=== PATIENT | female | born 1955 | race Caucasian/White ===

== ENCOUNTER 2017-02-03 19:01 | Inpatient (IN) | payer OTHER ==
[~2017-02-03] VITALS: Ht 179.1 cm; Wt 129.6 kg
[~2017-02-03 19:01] MED LIST: LISI20TA PO; NAPR220C11 PO; PROZAC20 M1 PO
[2017-02-03 19:14] VITALS: BP 157/99; PULSE 92; RESP 22; O2SAT 96
--- NOTE | 2017-02-03 19:30 | ED.REPORT ---
HPI-Hip/Pelvis Prob/Inj Date of Service Feb 03, 2017 ED Provider: Dmeetrio Trent MD Nursing Notes Stated Complaint: GROUND LEVEL FALL Chief Complaint: Extremity Trauma Allergies: Coded Allergies: erythromycin base (Verified Allergy, Severe, hives, 02/03/17) Scheduled Fluoxetine (Fluoxetine) 20 Mg Capsule 20 MG PO QAM Gluc/Jadiel-MSM#2/C/D3/Moe/Born (Tliybmwdod-Ypmormaikvf-CVD Tab) 1 Each Tablet 1 EACH PO QAM Lisinopril (Lisinopril) 20 Mg Tablet 40 MG PO QAM Scheduled PRN Naproxen Sodium (Naproxen Sodium) 220 Mg Capsule 220 MG PO BIDWM PRN PRN For Pain Physical Exam Initial Vital Signs Vital Signs (First) Date Time Temp Pulse Resp B/P Pulse Ox O2 Delivery O2 Flow Rate FiO2 02/03/17 19:14 36.8 92 22 157/99 96 Room Air Interpretation & Diagnostics Lab Results Interpretation Result Diagram: 02/03/17202502/03/172025 Test 02/03/17 20:26 White Blood Count 5.4th/mm3 (3.8-10.1) Red Blood Count 4.26mil/mm3 (3.90-5.20) Hemoglobin 13.2g/dL (12.0-15.6) Hematocrit 40.5% (35.0-46.0) Mean Corpuscular Volume 95.1fL (81-100) Mean Corpuscular Hemoglobin 31.0pg (27.0-35.0) Mean Corpuscular Hemoglobin Concent 32.6% (32.0-37.0) Red Cell Distribution Width 12.1% (12.3-15.4) Platelet Count 173bil/L (150-400) Neutrophils (%) (Auto) 67.2% (40-74) Lymphocytes (%) (Auto) 22.3% (14-46) Monocytes (%) (Auto) 8.2% (4-12) Eosinophils (%) (Auto) 1.1% (0-5) Basophils (%) (Auto) 0.6% (0-3) Prothrombin Time 9.8sec (8.1-12.5) Prothromb Time International Ratio 0.92ratio Sodium Level 133mEq/L (134-144) Potassium Level 4.1mEq/L (3.5-5.2) Chloride Level 95mEq/L (97-108) Carbon Dioxide Level 21mmol/L (18-29) Blood Urea Nitrogen 28mg/dL (8-27) Creatinine 0.73mg/dL (0.57-1.00) Estimat Glomerular Filtration Rate 116mL/min (>59) Glucose Level 125mg/dL (60-99) Calcium Level 9.2mg/dL (8.5-10.1) Magnesium Level 2.0mg/dL (1.6-2.6) Total Bilirubin 0.4mg/dL (0.0-1.2) Aspartate Amino Transf (AST/SGOT) 25U/L (0-50) Alanine Aminotransferase (ALT/SGPT) 19U/L (0-32) Alkaline Phosphatase 97U/L (25-165) Troponin T < 0.010ug/L (0.0-0.011) Total Protein 7.9g/dL (6.4-8.4) Albumin 4.1g/dL (3.4-5.0) Lipase 48U/L (13-60) Hold Conley Top Tube Received (Received) Alcohols 242mg/dL (0-10) Discharge & Departure Referrals: Monroe Varghese MD (PCP) Nic Elizabeth MD (Family) Demetrio Trent MD Feb 03, 2017 19:30 Murray Goodson MD Feb 04, 2017 02:06
[2017-02-03] MEDS: HYDROmorphone 0.5 mg/0.5 mL iSecure Syringe IVPUSH PRN ×3 (19:40→23:07)
--- NOTE | 2017-02-03 20:23 | DRSVH ---
PROCEDURE: X-RAY PELVIS W/LAT HIP (RT) ([id number]) INDICATIONS: GLF on to Rt hip, RT hip pain TECHNIQUE: AP pelvis with lateral view(s) of the right hip(s). COMPARISON: None. FINDINGS: Bones: Bony step-off involves the right femoral neck. Pelvic ring appears intact. No suspicious bony lesions. Soft tissues: The visualized bowel gas pattern is normal. No suspicious soft tissue calcifications. IMPRESSION: Probable right femoral neck fracture. Recommend confirmation with additional plain film i maging or CT. Dictated by: Juan Jorgensen M.D. on 02/03/2017 at 20:20 Approved by: Juan Jorgensen M.D. on 02/03/2017 at 20:21
--- NOTE | 2017-02-03 20:23 | DRSVH ---
PROCEDURE: X-RAY CHEST ONE VIEW, PORTABLE ([id number]) INDICATIONS: fall TECHNIQUE: One view of the chest was acquired. COMPARISON: None. FINDINGS: Surgical changes and devices: None. Lungs and pleura: No pleural effusions or pneumothorax. Lungs are clear. Mediastinum: Mediastinal contours appear normal. Heart size is normal. Bones and chest wall: No suspicious bony lesions. Overlying soft tissues appear unremarkable. IMPRESSION: No acute process. Dictated by: Juan Jorgensen M.D. on 02/03/2017 at 20:21 Approved by: Juan Jorgensen M.D. on 02/03/2017 at 20:22
[2017-02-03 20:42] LABS: BASOPHILS % (AUTO) 0.6 % (0-3); EOSINOPHILS % (AUTO) 1.1 % (0-5); MONOCYTES % (AUTO) 8.2 % (4-12); Mean Corpuscular Volume 95.1 fL (81-100); NEUTROPHILS % (AUTO) 67.2 % (40-74); Platelet Count 173 bil/L (150-400)
[2017-02-03 20:54] LABS: INR 0.92 ratio
--- NOTE | 2017-02-03 20:54 | ED.REPORT ---
HPI-General Illness Date of Service Feb 03, 2017 ED Provider: Murray Goodson MD The patient is a 62 year old female with a hx of HTN, depression presenting to the ED complaining of right hip pain after falling on the stairs this evening around 1830. She did not feel lightheaded or have any palpitations, chest pain , or other concerning symptoms; states that she merely "tripped". She describes the pain as "aching," radiates down to her right knee, and states that it was an 8/10 at its worse, but was reduced to a 3/10 after receiving medication in the emergency department. She claims that the pain is worse with movement. She admits to having a "couple big drinks" tonight. She denies neck pain, LOC, dysuria, incontinence, fever, numbness or tingling, chills, vomiting , SOB, diarrhea, vision changes, headache, nausea, skin rash, or chest pain. Nursing Notes Stated Complaint: GROUND LEVEL FALL Chief Complaint: Extremity Trauma Nursing Notes Reviewed: Yes Allergies: Coded Allergies: erythromycin base (Verified Allergy, Severe, hives, 02/03/17) Scheduled Fluoxetine (Fluoxetine) 20 Mg Capsule 20 MG PO QAM Gluc/Jadiel-MSM#2/C/D3/Moe/Born (Dgaynqocsy-Cxbdusssxhy-IDC Tab) 1 Each Tablet 1 EACH PO QAM Lisinopril (Lisinopril) 20 Mg Tablet 40 MG PO QAM Scheduled PRN Naproxen Sodium (Naproxen Sodium) 220 Mg Capsule 220 MG PO BIDWM PRN PRN For Pain General Time Seen by MD: 19:32 Chief Complaint Other (right hip pain) Hx Obtained From: Patient Arrived By: Walk-in Sudden in Onset?: Yes Onset Occurred: 1 - 4 hours ago Symptom Duration: Since onset Caused by: Fall on ground Location: : Hip right Radiation: : Leg right (from hip to knee) Severity: Current: Pain level 3 out of 10 Severity: Maximum: Pain level 8 out of 10 Associated with: Reports: Joint pain (right hip and knee), Pain (right hip), Denies: Chest pain, Fever, Headache, Loss of consciousness, Nausea, Numb extremities, Shortness of breath, Vision change Pertinent Negative: Pt denies other symptoms Recent Healthcare: No recent doctor visit, No recent hospitalization Similar Sx Previous: No Past Medical History Past Medical History Hypertension Past Surgical History Right ankle surgery Breast reduction Smoking History Unknown if Ever Smoker Social History Alcohol Use: "Social" Drug Use: Denies drug use Other Social History: Poor social support, Ambulatory Status Independent Review of Systems Full Review of Systems Constitutional: Denies: Chills, Fever Eyes: Denies: Visual loss bilateral Ears / Nose / Throat: Denies: Sore throat Respiratory: Denies: Shortness of breath Cardiovascular: Denies: Chest pain GI: Denies: Diarrhea, Nausea, Vomiting Female: Denies: Dysuria, Incontinence Musculoskeletal: Reports: Joint pain (Right hip), Denies: Neck pain Hematologic: Denies Bruising Endocrine: Denies: Polyuria Skin: Denies Rash Neurologic: Denies: Change LOC, Headache Psychiatric: Denies: Change mental status Complete sys rev & neg: except as marked. Physical Exam Nursing note and vitals reviewed. Constitutional: Well-developed, well-nourished. Not diaphoretic. Smells of alcohol. Head: Normocephalic and atraumatic. Mouth/Throat: Oropharynx is clear and moist. No oropharyngeal exudate. Eyes: EOM are normal. Pupils are equal, round, and reactive to light. Neck: Supple, no tracheal deviation. Cardiovascular: Normal rate, regular rhythm. Equal and intact distal pulses throughout. Pulmonary/Chest: Effort normal and breath sounds normal. No respiratory distress. Abdominal: Soft. No distension. There is no tenderness, rebound, or guarding. Bowel sounds present. Musculoskeletal: Range of motion grossly intact, moving all extremities. Right hip with diffuse tenderness to palpation without ecchymosis. Right knee nontender. Neurological: AOx3. Grossly nonfocal exam. Strength and sensation intact and equal to bilateral upper and lower extremities. Skin: Warm and dry, no rashes or pallor appreciated. Psychiatric: Appropriate mood and affect. Behavior appears normal. Vital Signs Vital Signs Date Time Temp Pulse Resp B/P Pulse Ox O2 Delivery O2 Flow Rate FiO2 02/03/17 19:14 36.8 92 22 157/99 96 Room Air Initial VS: Reviewed Interpretation & Diagnostics Lab Results Interpretation Result Diagram: 02/03/17202502/03/172025 Test 02/03/17 20:26 White Blood Count 5.4th/mm3 (3.8-10.1) Red Blood Count 4.26mil/mm3 (3.90-5.20) Hemoglobin 13.2g/dL (12.0-15.6) Hematocrit 40.5% (35.0-46.0) Mean Corpuscular Volume 95.1fL (81-100) Mean Corpuscular Hemoglobin 31.0pg (27.0-35.0) Mean Corpuscular Hemoglobin Concent 32.6% (32.0-37.0) Red Cell Distribution Width 12.1% (12.3-15.4) Platelet Count 173bil/L (150-400) Neutrophils (%) (Auto) 67.2% (40-74) Lymphocytes (%) (Auto) 22.3% (14-46) Monocytes (%) (Auto) 8.2% (4-12) Eosinophils (%) (Auto) 1.1% (0-5) Basophils (%) (Auto) 0.6% (0-3) Prothrombin Time 9.8sec (8.1-12.5) Prothromb Time International Ratio 0.92ratio Sodium Level 133mEq/L (134-144) Potassium Level 4.1mEq/L (3.5-5.2) Chloride Level 95mEq/L (97-108) Carbon Dioxide Level 21mmol/L (18-29) Blood Urea Nitrogen 28mg/dL (8-27) Creatinine 0.73mg/dL (0.57-1.00) Estimat Glomerular Filtration Rate 116mL/min (>59) Glucose Level 125mg/dL (60-99) Calcium Level 9.2mg/dL (8.5-10.1) Magnesium Level 2.0mg/dL (1.6-2.6) Total Bilirubin 0.4mg/dL (0.0-1.2) Aspartate Amino Transf (AST/SGOT) 25U/L (0-50) Alanine Aminotransferase (ALT/SGPT) 19U/L (0-32) Alkaline Phosphatase 97U/L (25-165) Troponin T < 0.010ug/L (0.0-0.011) Total Protein 7.9g/dL (6.4-8.4) Albumin 4.1g/dL (3.4-5.0) Lipase 48U/L (13-60) Hold Conley Top Tube Received (Received) Alcohols 242mg/dL (0-10) ECG Interpretation ECG Interpretation: Normal sinus rhythm Right bundle branch block Rate 92 Time: 19:57 Interpreted by: ED physician Normal ECG Interpretation: Normal sinus rhythm X-Ray Chest Interpretation Chest Xray Interpretation: IMPRESSION: No acute process. Dictated by: Juan Jorgensen M.D. on 02/03/2017 at 20:21 View: Portable, 1 view Interpretation / Wet Read by: Interpret - Radiologist X-Ray Interpretation Xray Interpretation: IMPRESSION: Probable right femoral neck fracture. Recommend confirmation with additional plain film imaging or CT. Dictated by: Juan Jorgensen M.D. on 02/03/2017 at 20:20 X-Ray Ordered: Pelvis Interpretation / Wet Read by: Interpret - Radiologist Re-Eval/Medical Decision Med Decision/Clinical Course In summary, 62-year-old female presenting to the ED for evaluation of right hip pain after a fall earlier today. Patient endorses a clear mechanical etiology for her fall and was not feeling lightheaded nor having chest pain or palpitations prior to the fall; doubt medical etiology for her fall. She does not have any right knee tenderness, numbness or tingling in the right leg, decreased sensation, or decreased strength. Compartments are soft. No neck pain or back pain, nor tenderness to palpation on exam. She did not hit her head and is not on blood thinners, no loss of consciousness; I do not think that she needs a CT scan of her head or C-spine at this time. EKG demonstrates sinus rhythm with a right bundle branch block. Plain films of the patient's chest and pelvis notable for a likely right femoral neck fracture - this is consistent with her examination. Laboratory studies reviewed, notable for a blood alcohol of 242, CBC grossly within normal limits, sodium of 133. Coags within normal limits. Dr. Reddy consulted as per below; appreciate her recommendations. She requested repeat plain films of the patient's hip as well as her femur, and a CT scan of the patient's hip. She also requested admission to the hospitalist service and she will see the patient tomorrow. She should be made NPO at midnight tonight. I discussed the above with the patient at length, who is agreeable to the plan as stated and had no further questions. Time of Eval: 22:34 Re-Evaluation/Progress Note: Patient rechecked. Discussed plan to admit. Patient understands and agrees with plan. All questions addressed at this time. Consultation #1: Referral / Consult Name: Shane Reddy MD Consulted With: Orthopedic Call Returned at: 22:25 Dietary Clerk: Agrees with eval, Agrees with plan Note: Discussed patient condition. Recommends CT Hip,, and Hip and Femur X-Rays. Admit to hospitalist. Consultation #2: Referral / Consult Name: Lulu Ross DO Consulted With: Hospitalist Call Returned at: 22:50 Dietary Clerk: Agrees with eval, Agrees with plan, Accepts admit Note: Discussed patient's condition. Counseled Regarding: Diagnosis, Lab results, Need for admission Discharge & Departure Primary Impression: Fracture of femoral neck, right Encounter type: initial encounter Fracture type: closed Qualified Code: S72.001A - Fracture of unspecified part of neck of right femur, initial encounter for closed fracture Additional Impression: Alcohol intoxication Complication of substance-induced condition: uncomplicated Qualified Code: F10.120 - Alcohol abuse with intoxication, uncomplicated Disposition: ADMITTED TO HOSPITAL Discharge Condition All VS Reviewed: Yes Condition: Improved Referrals: Monroe Varghese MD (PCP) Nic Elizabeth MD (Family) Nila Attestation Portions of this note were transcribed by Manjinder Osborne and Phillip Dunn. I, Dr. Goodson personally performed the history, physical exam and medical decision-making; I reviewed and confirmed the accuracy of the information in the transcribed note. Signed by: Nila Kahn, 02/03/2017 Signed by: Nila Malin, 02/03/17. copies to: Monroe Varghese MD; Nic Elizabeth MD, William B MD Feb 03, 2017 20:54 Feb 03, 2017 22:02 MANJINDER OSBORNE Feb 03, 2017 23:45
[2017-02-03 21:02] LABS: TROPONIN T < 0.010 ug/L (0.0-0.011)
[2017-02-03 21:10] LABS: Lipase 48 U/L (13-60)
[2017-02-03] MEDS ORDERED: LISI-567 PO (22:42)
[2017-02-03] MEDS ORDERED: GLUC-123 PO (22:42)
[2017-02-03] MEDS ORDERED: NAPR220C16 PO (22:42)
[2017-02-03] MEDS ORDERED: FLUO20CA25 PO (22:42)
[2017-02-03] MEDS ORDERED: Alum-Mag Hydrox-Simeth 30 mL Suspension PO PRN (22:50)
[2017-02-03] MEDS ORDERED: Ondansetron 2 mg/mL 2 mL Inj IVPUSH PRN (22:50)
[2017-02-03] MEDS ORDERED: Polyethylene Glycol (PEG) 17 Gm Powder PO PRN (22:50)
--- NOTE | 2017-02-03 22:59 | PCM.HPMED ---
Subjective Date of Service Feb 03, 2017 Primary Provider: Admitting Physician: Primary Care Physician: Monroe Varghese MD Attending Physician: Admit Status: From the Emergency Department Chief Complaint: hip pain, fall History of Present Illness: 62yoF with past medical history of HTN admitted following mechanical ground level fall with right hip fracture. Patient states that she was walking up wet stairs today with debris slipped and fell backwards. She denies hitting her head or losing consciousness. Following her fall Mrs. Chacon was unable to get up, EMS was called and she was transported to [facility] ED for further evaluation. Imaging of the right hip with findings of probably right femoral neck fracture. CT scan was ordered by ED staff and is pending on admission. Review of Systems: complete review of systems obtained. positive as per hpi otherwise negative. Allergies Coded Allergies: erythromycin base (Verified Allergy, Severe, hives, 02/03/17) Home Medications Lisinopril Fluoxetine Glucosamine Naproxen PMH HTN Surgical History Right ankle surgery Breast reduction Family History Father: liver CA Mother: Breast and lung CA Social History Hx Alcohol Use: Yes (occasional / weekend) Hx Substance Use: Yes Smoking Status: Unknown if Ever Smoker Living Arrangement: with Family Exam Vital Signs Vital Sign - Last Date Time Temp Pulse Resp B/P Pulse Ox O2 Delivery O2 Flow Rate FiO2 02/03/17 19:14 36.8 92 22 157/99 96 Room Air Exam General: Alert, Oriented X3, Cooperative, no acute distress Eyes: PERRLA, Scleral Anicteric Mouth: Mouth Normal, Mucous Membranes Moist/[place] Neck: Supple, no Thyromegaly, trachea central. Chest & Lungs: Clear to auscultation & percussion, No adventitious breath sounds, no crackles, no wheeze Cardiovascular: Normal S1, Normal S2, No Murmurs/Rubs/Gallops, Regular Rate/ Rhythm Pulses: Radial (present and equal), Dorsalis Pedi (present and equal) Abdomen: Soft,Non-tender, Non-distended, Normoactive bowel tones. Musculoskeletal: right leg externally rotated Extremities: No edema, no cyanosis, no clubbing. Skin: No rashes. Warm and dry, no erythematous areas Neurological: Grossly neurologically intact, Normal Speech, Sensation Intact Lymphatic: Lymph nodes Cervical and Axillary not palpable. Lab and Diagnostics Result Diagram: 02/03/17202502/03/172025 X-Rays, CTs and MRIs Patient Name: TERESA CHACON MR#: [id number] Location: SED Ordering Phys: Murray Goodson MD Date of Service: 02/03/171925 PROCEDURE: X-RAY CHEST ONE VIEW, PORTABLE ([id number]) INDICATIONS: fall TECHNIQUE: One view of the chest was acquired. COMPARISON: None. FINDINGS: Surgical changes and devices: None. Lungs and pleura: No pleural effusions or pneumothorax. Lungs are clear. Mediastinum: Mediastinal contours appear normal. Heart size is normal. Bones and chest wall: No suspicious bony lesions. Overlying soft tissues appear unremarkable. IMPRESSION: No acute process. Dictated by: Juan Jorgensen M.D. on 02/03/2017 at 20:21 Approved by: Juan Jorgensen M.D. on 02/03/2017 at 20:22 Patient Name: TERESA CHACON MR#: [id number] Location: SED Ordering Phys: LUCIANO HANSEN MD Date of Service: 02/03/171927 PROCEDURE: X-RAY PELVIS W/LAT HIP (RT) ([id number]) INDICATIONS: GLF on to Rt hip, RT hip pain TECHNIQUE: AP pelvis with lateral view(s) of the right hip(s). COMPARISON: None. FINDINGS: Bones: Bony step-off involves the right femoral neck. Pelvic ring appears intact. No suspicious bony lesions. Soft tissues: The visualized bowel gas pattern is normal. No suspicious soft tissue calcifications. IMPRESSION: Probable right femoral neck fracture. Recommend confirmation with additional plain film imaging or CT. Dictated by: Juan Jorgensen M.D. on 02/03/2017 at 20:20 Approved by: Juan Jorgensen M.D. on 02/03/2017 at 20:21 Assessment & Plan 62yoF with past medical history of HTN admitted following mechanical ground level fall with right hip fracture. Right hip fracture, acute, POA -subsequent to mechanical ground level fall -NPO, mIVF -bed rest at this time -ortho consulted, recs appreciated hyponatremia, acute, POA -patient with mildly low sodium on admission -repeat with am labs ETOH use, acute, POA -possible contributing factor to fall -no history of withdrawal -continue to monitor elevated glucose, acute, POA -no history of diabetes -HGBa1c added to admission labs, pending HTN, chronic -BP mildly elevated on admission -continue home medications Patient admitted under inpatient status and will likely be admitted for >2 midnights. Pain Evaluation: Adequate Pain Control GI Prophylaxis: Not indicated VTE Prophylaxis: Sub-Q Heparin (Unfractionated) Resuscitation Status: CPR: Attempt Resuscitation Lulu Ross DO Feb 03, 2017 22:59
[2017-02-03 23:00] VITALS: BP 158/79; PULSE 97; RESP 17; O2SAT 94
[2017-02-03] MEDS ORDERED: HYDROmorphone 0.5 mg/0.5 mL iSecure Syringe IVPUSH PRN (23:05)
[2017-02-03 23:13] VITALS: BP 158/79; PULSE 97; RESP 17; O2SAT 94
[2017-02-03 23:13] LABS: APPEARANCE,URINE CLEAR (CLEAR,HAZY); COLOR,URINE STRAW (YELLOW)
[2017-02-03 23:14] LABS: OCCULT BLOOD,URINE NEGATIVE (NEGATIVE); UROBILINOGEN,URINE NORMAL (NORMAL)
[2017-02-04] VITALS (12 sets, daily range): BP systolic 123–184; BP diastolic 83–104; PULSE 83–120; RESP 11–18; O2SAT 94–99
[2017-02-04] MEDS: 0.9% Sodium Chloride 1,000 ML IV SCH ×3 (00:27→21:16)
[2017-02-04] MEDS ORDERED: HYDROmorphone 1 mg/mL Inj IVPUSH ONE (04:00)
--- NOTE | 2017-02-04 05:14 | NUR ---
Admit Pt admitted to [facility] Rm 1010 at 2350 from ED. Pt transferred from [facility] to bed via slider board. Pt on RA, VSS. Pt had just received pain meds from ED and reported pain tolerable. Pt made NPO, IVF infusing at 75ml/hr. Pt able to use the bedpan to urinate x3 this shift. This morning pain increased to 9/10 and paged for breath through pain medication, Dilaudid 0.5mg given with good result. MRSA swab was sent-pt had history 14 years ago. Tele placed and SR 90s throughout this shift.
[2017-02-04 05:22] LABS: BASOPHILS % (AUTO) 0.2 % (0-3); EOSINOPHILS % (AUTO) 0.5 % (0-5); Mean Corpuscular Hemoglobin 32.4 pg (27.0-35.0); Mean Corpuscular Volume 96.4 fL (81-100); NEUTROPHILS % (AUTO) 74.9 % (40-74); Platelet Count 182 bil/L (150-400)
[2017-02-04] MEDS: HYDROmorphone 1 mg/mL Inj IVPUSH PRN ×4 (06:09→21:26)
[2017-02-04] MEDS ORDERED: Cisatracurium 2,000 mCg/mL 10 mL Inj ONE (08:15)
[2017-02-04] MEDS ORDERED: Neostigmine 1 mg/mL 10 mL Inj ONE (08:15)
[2017-02-04] MEDS ORDERED: Ketamine 10 mg/mL 20 mL Inj ONE (08:15)
[2017-02-04] MEDS ORDERED: MetoCLOpramide 5 mg/mL 2 mL Inj ONE (08:15)
[2017-02-04] MEDS ORDERED: Glycopyrrolate 0.2 MG/ML 1mL Inj ONE (08:15)
[2017-02-04] MEDS ORDERED: Dexamethasone 4 mg/mL Inj ONE (08:15)
[2017-02-04] MEDS ORDERED: HYDROmorphone 1 mg/mL Inj ONE (08:15)
[2017-02-04] MEDS ORDERED: Ondansetron 2 mg/mL 2 mL Inj ONE (08:15)
[2017-02-04] MEDS ORDERED: Propofol 10,000 mCg/mL 20 mL Inj ONE (08:15)
--- NOTE | 2017-02-04 08:15 | DRSVH ---
PROCEDURE: X-RAY RIGHT HIP COMPLETE, MINIMUM TWO VIEWS ([id number]) INDICATIONS: hip pain; better dedicated views TECHNIQUE: 2 views of the hip were acquired. COMPARISON: [facility], CT, CT HIP RT WO CON, 02/03/2017, 22:51. [facility], CR, XR FEMUR 2VW RT, 02/03/2017, 23:11. FINDINGS: Bones: There is a moderately displaced fracture of the mid neck of the right hip. Minimal comminutio n is seen. No dislocation can be seen. No fractures of the pelvic girdle are seen. No suspicious lytic or blastic lesions are seen. Soft tissues: No suspicious soft tissue calcifications or masses. Pelvic phleboliths are incidental ly noted. IMPRESSION: Moderately displaced femoral neck fracture. Dictated by: Agus Rainey M.D. on 02/04/2017 at 8:12 Approved by: Agus Rainey M.D. on 02/04/2017 at 8:14
--- NOTE | 2017-02-04 08:17 | DRSVH ---
PROCEDURE: X-RAY RIGHT FEMUR, TWO VIEWS ([id number]) INDICATIONS: hip pain; better dedicated views TECHNIQUE: 2 views of the femur were acquired. COMPARISON: [facility], CR, XR HIP 2VW RT, 02/03/2017, 23:11. [facility], CT , CT HIP RT WO CON, 02/03/2017, 22:51. [facility], CR, XR PELVIS W LATERAL HIP RT, 017, 19:33. FINDINGS: Bones: There is a moderately displaced right femoral neck fracture seen. No hip dislocation is seen. No additional fractures are detected. Age-appropriate bony degenerative changes are seen. No suspicious lytic or blastic lesions are seen. Soft tissues: No suspicious soft tissue calcifications or masses. IMPRESSION: Moderately displaced femoral neck fracture. Dictated by: Agus Rainey M.D. on 02/04/2017 at 8:14 Approved by: Agus Rainey M.D. on 02/04/2017 at 8:15
--- NOTE | 2017-02-04 08:39 | DRSVH ---
PROCEDURE: CT HIP RIGHT W/O CONTRAST ([id number]) INDICATIONS: hip pain TECHNIQUE: Noncontrast 3 mm axial sections acquired through the bony pelvis. Additional 3 mm axial sections acq uired through the symptomatic hip joint, with coronal and sagittal reformats. COMPARISON: [facility], CR, XR PELVIS W LATERAL HIP RT, 02/03/2017, 19:33. [facility], CR, XR FEMUR 2VW RT, 02/03/2017, 23:11. [facility], CR, XR HIP 2VW RT, 02/04/20 17, 23:11. FINDINGS: Image quality: Excellent. Bones: There is a femoral neck fracture with 1 cm anterior displacement of the distal fracture fragme nt and impaction and angulation. There is possible fracture of the sacral body although motion artifa cts could be responsible for the appearance. Degenerative changes noted in the lumbar spine. Soft tissues: No soft tissue mass or hematoma. IMPRESSION: 1. Right femoral neck fracture with mild displacement, impaction and angulation. 2. Possible sacral fracture versus motion artifacts. If clinically indicated, MRI of sacrum without c ontrast is suggested for further evaluation. Dictated by: Aurora Thompson M.D. on 02/04/2017 at 8:32 Transcribed by: BOBBY on 02/04/2017 at 8:38 Approved by: Aurora Thompson M.D. on 02/04/2017 at 8:41
--- NOTE | 2017-02-04 10:41 | PCM.PNMED ---
Subjective Date of Service Feb 04, 2017 Subjective pain controlled,she says she is able to take 2 flights of stair without chest pain or dyspnea . no known CAD . Exam Vital Signs Vital Sign - Last Date Time Temp Pulse Resp B/P Pulse Ox O2 Delivery O2 Flow Rate FiO2 02/04/17 09:59 104 02/04/17 07:18 36.9 16 126/84 96 Room Air Intake and Output 02/03/17 02/03/17 02/04/17 Cumulative From/Thru 14:59 22:59 06:59 02/03/17 19:14 - 02/04/17 05:55 Intake Total 380 ml 380 ml Balance 380 ml 380 ml IV Total 380 ml 380 ml # Voids 2 2 Exam General: Alert, Oriented X3, Cooperative, no acute distress Eyes: PERRLA, Scleral Anicteric Mouth: Mouth Normal, Mucous Membranes Moist/[place] Neck: Supple, no Thyromegaly, trachea central. Chest & Lungs: Clear to auscultation & percussion, No adventitious breath sounds, no crackles, no wheeze Cardiovascular: Normal S1, Normal S2, No Murmurs/Rubs/Gallops, Regular Rate/ Rhythm Pulses: Radial (present and equal), Dorsalis Pedi (present and equal) Abdomen: Soft,Non-tender, Non-distended, Normoactive bowel tones. Musculoskeletal: right leg externally rotated Extremities: No edema, no cyanosis, no clubbing. Skin: No rashes. Warm and dry, no erythematous areas Neurological: Grossly neurologically intact, Normal Speech, Sensation Intact Lymphatic: Lymph nodes Cervical and Axillary not palpable. IVs and Medications Medications Reviewed: Medications were reviewed in detail Lab and Diagnostics Result Diagram: 02/04/1745702/04/17457 X-Rays, CTs and MRIs PROCEDURE: X-RAY CHEST ONE VIEW, PORTABLE ([id number]) INDICATIONS: fall TECHNIQUE: One view of the chest was acquired. COMPARISON: None. FINDINGS: Surgical changes and devices: None. Lungs and pleura: No pleural effusions or pneumothorax. Lungs are clear. Mediastinum: Mediastinal contours appear normal. Heart size is normal. Bones and chest wall: No suspicious bony lesions. Overlying soft tissues appear unremarkable. IMPRESSION: No acute process. Dictated by: Juan Jorgensen M.D. on 02/03/2017 at 20:21 Approved by: Juan Jorgensen M.D. on 02/03/2017 at 20:22 Patient Name: TERESA GLASS MR#: [id number] Location: [facility] Ordering Phys: LUCIANO HANSEN MD Date of Service: 02/03/171927 PROCEDURE: X-RAY PELVIS W/LAT HIP (RT) ([id number]) INDICATIONS: GLF on to Rt hip, RT hip pain TECHNIQUE: AP pelvis with lateral view(s) of the right hip(s). COMPARISON: None. FINDINGS: Bones: Bony step-off involves the right femoral neck. Pelvic ring appears intact. No suspicious bony lesions. Soft tissues: The visualized bowel gas pattern is normal. No suspicious soft tissue calcifications. IMPRESSION: Probable right femoral neck fracture. Recommend confirmation with additional plain film imaging or CT. Dictated by: Juan Jorgensen M.D. on 02/03/2017 at 20:20 Approved by: Juan Jorgensen M.D. on 02/03/2017 at 20:21 ROCEDURE: CT HIP RIGHT W/O CONTRAST ([id number]) INDICATIONS: hip pain TECHNIQUE: Noncontrast 3 mm axial sections acquired through the bony pelvis. Additional 3 mm axial sections acquired through the symptomatic hip joint, with coronal and sagittal reformats. COMPARISON: [facility], CR, XR PELVIS W LATERAL HIP RT, 02/03/2017, 19:33. [facility], CR, XR FEMUR 2VW RT, 02/03/2017, 23:11. [facility], CR, XR HIP 2VW RT, 02/03/2017, 23:11. FINDINGS: Image quality: Excellent. Bones: There is a femoral neck fracture with 1 cm anterior displacement of the distal fracture fragment and impaction and angulation. There is possible fracture of the sacral body although motion artifacts could be responsible for the appearance. Degenerative changes noted in the lumbar spine. Soft tissues: No soft tissue mass or hematoma. IMPRESSION: 1. Right femoral neck fracture with mild displacement, impaction and angulation. 2. Possible sacral fracture versus motion artifacts. If clinically indicated, MRI of sacrum without contrast is suggested for further evaluation. Dictated by: Aurora Thompson M.D. on 02/04/2017 at 8:32 Assessment & Plan 62yoF with past medical history of HTN admitted following mechanical ground level fall with right hip fracture. # Right hip fracture, acute, POA -subsequent to mechanical ground level fall -NPO, mIVF -bed rest at this time -ortho consulted, recs appreciated -EKG RBBB of unknown chronicity .patient able to take flights of stair and ambulate with out chest pain or dyspnea -patient medically optimized for procedure # RBBB -no baseline EKG to compare with -will do echo to assess heart function. -no chest pain ,SOB or leg swelling # ground level fall -mechanical and alcohol contributing # hyponatremia, acute, POA,resolved -patient with mildly low sodium on admission # ETOH use, acute, POA -possible contributing factor to fall -no history of withdrawal -continue to monitor # elevated glucose, acute, POA -no history of diabetes -HGBa1c added to admission labs, pending # HTN, chronic -BP mildly elevated on admission -continue home medications Patient admitted under inpatient status and will likely be admitted for >2 midnights. GI Prophylaxis: Not indicated VTE Prophylaxis: Sub-Q Heparin (Unfractionated) VTE Mechanical Devices: Intermittant Pneumatic CD Resuscitation Status: CPR: Attempt Resuscitation Kimo Kincaid MD Feb 04, 2017 10:41
--- NOTE | 2017-02-04 14:59 | DRSVH ---
Formerly [facility] [address] [place] [address] Echocardiogram Report Name: TERESA GLASS RStudy Date: 02/04/2017 Height: 70.5 in Hospital Exam Location: [facility] Weight: 285 lb Gender: Female BSA: 2.4 m2 : 1955 Age: 62 yrs BP: 126/84 mmHg Reason For Study: Abnormal ECG, RBBB Ordering Physician: HOSPITALIST [facility] Performed By: Qing Horne Referring Physician: [facility] Hospital[facility] Interpretation Summary Left ventricular wall thickness is mildly increased. Left ventricular systolic function is normal without focal wall motion abnormalities. The ejection fraction is estimated to be 60-65%. The right ventricle is normal in size and function. The right ventricular systolic pressure is estimated at 26 mmHg assuming a right atrial pressure of 3 mm Hg. The left atrium is borderline dilated. The right atrium is normal in size. There is no significant valvular heart disease. The ascending aorta is mildly enlarged. Procedure: A two-dimensional transthoracic echocardiogram with color flow and Doppler was performed. The study quality was technically adequate. There is no prior echocardiogram noted for this patient. The patient was in normal sinus rhythm during the exam. Left Ventricle: The left ventricle is normal in size. Left ventricular wall thickness is mildly increased. Left ventricular systolic function is normal without focal wall motion abnormalities. The ejection fraction is estimated to be 60-65%. Right Ventricle: The right ventricle is normal in size and function. Atria: The left atrium is borderline dilated. The right atrium is normal in size. The interatrial septum is intact with no evidence for an atrial septal defect. Mitral Valve: The mitral valve is normal in structure and function. There is trace mitral regurgitation. Aortic Valve: The aortic valve is trileaflet. The aortic valve opens well. No aortic regurgitation is present. Tricuspid Valve: The tricuspid valve is normal in structure and function. There is trace tricuspid regurgitation. The right ventricular systolic pressure is estimated at 26 mmHg assuming a right atrial pressure of 3 mm Hg. Pulmonic Valve: The pulmonic valve is normal in structure and function. There is a trace or physiologic amount of pulmonic regurgitation. There is no significant valvular heart disease. Great Vessels: The aortic root is normal size. The ascending aorta is mildly enlarged. The aortic arch is at the upper limits of normal in size. The IVC is of normal diameter and collapses greater than 50% with a sniff. This suggests a low right atrial pressure of 3 mm Hg. Pericardium/ Pleura There is no pericardial effusion. There is an anterior echo-free space consistent with a fat pad. There is no pleural effusion. MMode/2D Measurements & Calculations LVIDd: 4.9 cm LVIDs: 3.2 cm LA A2 area: 18.5 cm FS: 35.1 % LA A4 area: 24.2 cm IVSd: 1.2 cm LA length (vol): 5.0 cm LVPWd: 1.2 cm LA vol: 76.0 ml LA vol index: 31.2 ml/m2 RA long axis: 4.2 cm LVOT diam: 2.4 cm RA area: 16.0 cm asc Aorta Diam: 3.7 cm RA vol: 52.0 ml Ao Arch Diam (Prox Trans): 3.3 cm RA : 21.3 ml/m2 LV sanz. diameter/BSA (cm/m^2): 2.0 LV sys. diameter/BSA (cm/m^2): 1.3 TAPSE: 2.5 cm Doppler Measurements & Calculations Ao V2 max: 163.0 cm/sec TR max trav: 237.7 cm/sec Ao max P.6 mmHg TR max P.6 mmHg Ao mean P.1 mmHg PA V2 max: 105.9 cm/sec LVOT Max Trav: 115.4 cm/sec PA mean P.2 mmHg FELIZ(I,D): 3.0 cm sev ratio: 0.67 Ao V2 mean: 117.5 cm/sec LV V1 max P.3 mmHg Ao V2 VTI: 29.5 cm LV V1 VTI: 19.8 cm FELIZ(V,D): 3.1 cm2 PA V2 mean: 68.2 cm/sec FELIZ indexed to BSA (cm^2/m^2): 1.2 PA pr(Accel): 22.4 mmHg Reading Physician:MATHIEU
[2017-02-04] MEDS: Vancomycin Inj 2,000 MG in 0.9% Sodium Chloride 500 ML IV SCH ×2 (15:15→19:29)
[2017-02-04] MEDS ORDERED: Tranexamic Acid 100 mg/mL 10 mL Inj ONE (15:31)
[2017-02-04] MEDS ORDERED: 0.9% Sodium Chloride 200 ML ONE (15:31)
[2017-02-04] MEDS ORDERED: Bupivacaine Liposome 1.3% 20 mL Inj ONE (15:32)
--- NOTE | 2017-02-04 15:44 | PCM.HPANE ---
Patient Data Surgeon Admitting Provider:Lulu Ross DO Attending Provider:Kimo Kincaid MD Primary Care Physician:Monroe Vagrhese MD Other Provider: Reason for Visit Hip Fracture,Alcohol Intoxication Ht/WT & BMI Height (Feet): 5 Height (Inches): 10.50 Weight (Kilograms): 129.600 Body Mass Index 40.45 Allergies Coded Allergies: erythromycin base (Verified Allergy, Severe, hives, 02/03/17) Past Anesthesia History Anesthesia History: Denies:: Anesthesia Reactions, Fam Anesthesia Reaction, Fam Malignant Hypertherm, Malignant Hyperthermia Diabetes History Hx Diabetes?: No MRSA MRSA: No (previous MRSA, treated 14 years ago) Medications Hypertension Medication: Yes Home Meds Incl Beta Kathleen: No Reported Medications Gluc/Jadiel-MSM#2/C/D3/Moe/Born (Qbcmoqwjdc-Yoxkwdbuqym-JUE Tab)1 Each Tablet1 Each PO QAM 02/03/17 Naproxen Sodium 220 Mg [id number] Mg PO BIDWM PRN For Pain Ref 0 02/03/17 Lisinopril 20 Mg [id number] Mg PO QAM 30 Days Ref 0 02/03/17 Fluoxetine 20 Mg [id number] Mg PO QAM Ref 0 02/03/17 Discontinued Reported Medications FLUoxetine-Expunged Drug, Do not Renew! (Prozac-Expunged Drug, Do not Renew!)20 Mg Cap20 Mg PO #2 12/06/12 Naproxen Sod-Expunged Drug, Do Not Renew!! (Aleve-Expunged Drug,Do Not Renew!) 220 Mg [id number] Po #3 12/06/12 Lisinopril-Expunged Drug, Do Not Renew! 20 Mg Tablet Po 12/06/12 History History of ENT Problems?: No HEENT History: Denies:: Abnormal Airway Cataracts Difficult Intubation Dysphagia Glaucoma Hearing Problem Sinus Problem TMJ Denture Type: None Teeth Condition: Within Normal Limits Hx of Heart Problems?: Yes Cardiovascular History: Positive for:: Hypertension Denies:: AICD Abdominal Aortic Aneurism Atrial Fibrillation Cardiac Surgery Chest Pain Congestive Heart Failure Coronary Artery Disease Edema Heart Murmur Irregular Heartbeat Pacemaker Peripheral Vascular Rheumatic Fever Thrombophlebitis Valvular Heart Disease Hx of Respiratory Problem?: No Respiratory History: Denies:: Asthma COPD Chest Surgery Cough Dyspnea Emphysema Hemoptysis Oxygen Administration Pneumonia Pulmonary Embolism Tuberculosis Use of C-PAP Machine Use of Inhalers / NEBS Hx Neurologic Problems?: No Hx of GI Problems?: Yes Hx of Problems?: No Female Hx: Positive for:: Problems with Breasts? (Breast reduction 1990) Denies:: Currently Skin History: Denies:: History Skin Disorders? Pressure Ulcers Hx Musculoskeletal Problems?: Yes Musculoskeletal History: Positive for:: Musculoskeletal Trauma (BROKEN ANKLE- STEEL PLATE) Hx of Psycho/Social Problems?: No Psycho Social History: Positive for:: Hx Depression (Prozac) Denies:: Anxiety Bipolar Disorder Suicide Attempt Hx Surgeries?: Yes (Breast reduction 1990, Steel plate for right ankle ) Hx Any Other Health Problems?: No Other History: Positive for:: Hospitalization (Breast Reduction) Thyroid Disease (infection) Denies:: Cancer History Blood Transfusions: Positive for:: Accept Blood Products? Denies:: Blood Transfuse Reaction Blood Transfusions Hx Diabetes: No Hx Alcohol Use: YesAlcoholic Drinks Per Day: SOCIAL/WEEKENDSHx Substance Use: No Smoking Status: Unknown if Ever Smoker Have You Smoked inLast 12 mo: No Stop/Bang Treated for Sleep Apnea?: No Do You Have a CPAP Machine?: No S-Snoring: Do You Snore Loudly: No T-Tired: feel tired, fatigued: No O-Obsered: Observed not breath: No P-Blood Pressure: treated: Yes B- Body Mass Index > 35 kg/m2: Yes A- Age over 50: Yes N- Neck Large Circumference: No G- Gender Male: No ETTA Total Score: 3 ETTA Risk Assessment: Low Risk, <3 Yes Risk Assessment Category Category 1A: Patient has history of documented sleep apnea, and HAS NOT received any narcotic, sedative or anesthesia administration during this stay. Category 1B: Patient has history of documented sleep apnea, and HAS received any narcotic , sedative or anesthesia administration during this stay Category 2: Patient has SUSPECTED Obstructive Sleep Apnea, and HAS received any narcotic , sedative or anesthesia administration during this stay. Category 3: Patient has SUSPECTED Obstructive Sleep Apnea and HAS NOT received narcotic, sedative or anesthesia administration during this stay. Category 4: Outpatient in Procedural Areas with known sleep apnea or who screen positive for High Risk via the STOP/BANG questionnaire. Exam Exam Vital Signs Vital Signs Date Time Temp Pulse Resp B/P Pulse Ox O2 Delivery O2 Flow Rate FiO2 02/04/17 12:30 36.8 88 16 127/84 98 Room Air 02/04/17 09:59 104 General Appearance: Oriented X3 HEENT/AIRWAY: MP 2 Lungs: Normal Air Movement Heart: Regular Rate/Rhythm Meds/Labs/Diagnostics Admission Meds Current Medications Sodium Chloride (Normal Saline) 1,000 ml @ 75 mls/hr [id number] IV Last administered on 02/04/17 14:33; Start 02/03/17 at 23:05 Hydromorphone HCl (Dilaudid Inj) 0.5 mg ONCE ONCE IVPUSH Last administered on 02/04/17 04:02; Start 02/04/17 at 04:00; Stop 02/04/17 at 04:01; Status DC Labs Test 02/03/17 20:26 02/03/17 22:59 02/04/17 04:58 Prothrombin Time 9.8sec (8.1-12.5) Prothromb Time International Ratio 0.92ratio Magnesium Level 2.0mg/dL (1.6-2.6) Troponin T < 0.010ug/L (0.0-0.011) Lipase 48U/L (13-60) Hold Conley Top Tube Received (Received) Alcohols 242mg/dL (0-10) Urine Color Straw (YELLOW) Urine Appearance Clear (CLEAR,HAZY) Urine pH 5.0 (5.0-8.0) Urine Specific [place] 1.005 (1.003-1.035) Urine Protein Negativemg/dL (NEG,TRACE) Urine Glucose (UA) Negativemg/dL (NEGATIVE) Urine Ketones Negativemg/dL (NEGATIVE) Urine Occult Blood Negative (NEGATIVE) Urine Nitrite Negative (NEGATIVE) Urine Bilirubin Negative (NEGATIVE) Urine Urobilinogen Normalmg/dL (NORMAL) Urine Leukocyte Esterase Negative (NEGATIVE) Urine RBC 0-2/hpf (0-2) Urine WBC 0-5/hpf (0-5) Urine Epithelial Cells Few/hpf (NONE-MOD) Urine Crystals None seen (NONE SEEN) Urine Bacteria None/hpf (NONE-FEW) Urine Hyaline Casts None/lpf (NONE) Urine Granular Casts None seen (NONE SEEN) Urine Waxy Casts None seen (NONE SEEN) Urine Red Blood Cell Casts None seen (NONE SEEN) Urine White Blood Cell Casts None seen (NONE SEEN) Urine Mucus None seen (None Seen) Urine Trichomonas None seen (NONE SEEN) Urine Yeast None (NONE SEEN) Urinalysis Comment None White Blood Count 6.2th/mm3 (3.8-10.1) Red Blood Count 3.92mil/mm3 (3.90-5.20) Hemoglobin 12.7g/dL (12.0-15.6) Hematocrit 37.8% (35.0-46.0) Mean Corpuscular Volume 96.4fL (81-100) Mean Corpuscular Hemoglobin 32.4pg (27.0-35.0) Mean Corpuscular Hemoglobin Concent 33.6% (32.0-37.0) Red Cell Distribution Width 12.2% (12.3-15.4) Platelet Count 182bil/L (150-400) Neutrophils (%) (Auto) 74.9% (40-74) Lymphocytes (%) (Auto) 16.2% (14-46) Monocytes (%) (Auto) 8.0% (4-12) Eosinophils (%) (Auto) 0.5% (0-5) Basophils (%) (Auto) 0.2% (0-3) Sodium Level 140mEq/L (134-144) Potassium Level 4.4mEq/L (3.5-5.2) Chloride Level 100mEq/L (97-108) Carbon Dioxide Level 22mmol/L (18-29) Blood Urea Nitrogen 25mg/dL (8-27) Creatinine 0.63mg/dL (0.57-1.00) Estimat Glomerular Filtration Rate 138mL/min (>59) Glucose Level 101mg/dL (60-99) Calcium Level 9.0mg/dL (8.5-10.1) Total Bilirubin 0.4mg/dL (0.0-1.2) Aspartate Amino Transf (AST/SGOT) 26U/L (0-50) Alanine Aminotransferase (ALT/SGPT) 18U/L (0-32) Alkaline Phosphatase 94U/L (25-165) Total Protein 7.1g/dL (6.4-8.4) Albumin 3.9g/dL (3.4-5.0) Plan Impression Patient chart reviewed, patient interviewed and anesthestic plan with risks, benefits, and alternatives discussed, and informed consent obtained. ASA Physical Status: ASA2 Mod Systemic Disease Anesthetic Plan: GA Bene/Risks/Altern/Consents: Yes HP Complete Prior to Induction: Yes Eduardo Polanco MD Feb 04, 2017 15:44
[2017-02-04] MEDS ORDERED: Lactated Ringer's 1,000 ML IV ONE (15:48)
[2017-02-04] MEDS: CeFAZolin Inj 3 GM in IV Premix IV SCH ×2 (16:10→19:29)
[2017-02-04] MEDS ORDERED: Bupivacaine Liposome 1.3% 20 mL Inj INFILTRATE ONE ×2 (16:49)
[2017-02-04] MEDS ORDERED: Bupivacaine-MPF 0.25%/EPI 30 mL Inj INFILTRATE ONE ×2 (16:49)
[2017-02-04] MEDS ORDERED: Bupivacaine-MPF 0.25% 30 mL Inj INFILTRATE ONE (16:49)
[2017-02-04] MEDS ORDERED: 0.9% Sodium Chloride 10 mL Inj INFILTRATE ONE ×2 (16:49)
[2017-02-04] MEDS ORDERED: Acetaminophen IV 1,000 MG in IV Premix 1 EACH IV ONE (17:50)
[2017-02-04] MEDS ORDERED: Ondansetron 2 mg/mL 2 mL Inj IVPUSH PRN ×2 (17:50→18:30)
[2017-02-04] MEDS ORDERED: diphenhydrAMINE 25 mg Capsule PO PRN (17:50)
[2017-02-04] MEDS ORDERED: HYDROcodone-APAP 7.5-325 mg Tablet PO PRN (17:50)
[2017-02-04 18:10] LABS: APPEARANCE,URINE CLEAR (CLEAR,HAZY); COLOR,URINE STRAW (YELLOW); OCCULT BLOOD,URINE NEGATIVE (NEGATIVE); PH,URINE 5.5 (5.0-8.0); UROBILINOGEN,URINE NORMAL (NORMAL)
[2017-02-04] MEDS ORDERED: Lactated Ringer's 500 ML IV PRN (18:26)
[2017-02-04] MEDS ORDERED: Lactated Ringer's 1,000 ML IV SCH (18:26)
--- NOTE | 2017-02-04 18:27 | PCM.ANEP1 ---
Post Anesthesia PACU Phase 1 Assessment Vital Signs Vital Signs Date Time Temp Pulse Resp B/P Pulse Ox O2 Delivery O2 Flow Rate FiO2 02/04/17 18:23 37.3 115 13 173/93 96 Simple Mask 8 02/04/17 12:30 36.8 88 16 127/84 98 Room Air Anesthetic Administered: GA Level of Alertness: Sleepy, easy to arouse Pain: No (rn aware) Pain Scale Score: 9 Nausea or Vomiting: No CV Function & Hydration Stable: Yes Airway Device: Lungs: Normal Air Movement PACU Phase 2 Assessment Patient Instructions Provided: N/A Eduardo Polanco MD Feb 04, 2017 18:27
[2017-02-04] MEDS ORDERED: EPHEDrine Sulfate 50 mg/mL Inj IVPUSH PRN (18:30)
[2017-02-04] MEDS ORDERED: Labetalol 5 mg/mL 20 mL Inj IV PRN (18:30)
[2017-02-04] MEDS ORDERED: Dexamethasone 4 mg/mL Inj IVPUSH PRN (18:30)
[2017-02-04] MEDS ORDERED: HYDROmorphone 1 mg/mL Inj IVPUSH PRN (18:30)
[2017-02-04] MEDS ORDERED: Phenylephrine 10,000 mCg/mL Inj IVPUSH PRN (18:30)
[2017-02-04] MEDS ORDERED: MetoCLOpramide 5 mg/mL 2 mL Inj IVPUSH PRN (18:30)
[2017-02-04] MEDS ORDERED: fentaNYL-PF 50 mCg/mL 2 mL Inj IVPUSH PRN (18:30)
--- NOTE | 2017-02-04 19:23 | NUR ---
Pain/surgery Patient medicated for pain for right hip fracture alternating between po oxycodone and Dilaudid ivp . Pain fairly consistent at 8-9/10 today. Patient taken to surgery around 1500 and as of 1922 pm patient has not returned from surgery yet.
--- NOTE | 2017-02-04 20:20 | NUR ---
Post op Pt back to [facility] Rm 1010 at 1940 from PACU. Pt alert and oriented. No complaints of pain at this time. Right hip bulky dressing is CDI. Wedge in place. Orthos intact. SCDs placed. Pt denies nausea and will advance diet as tolerated. Pt on tele, ST 100s per radio electronics technician. Pt on 2L O2 via NC with O2 sats 95%, will wean off O2.
--- NOTE | 2017-02-04 20:22 | DRSVH ---
PROCEDURE: X-RAY PELVIS W/LAT HIP (RT) ([id number]) INDICATIONS: post op TECHNIQUE: AP pelvis and lateral view of the right hip acquired. COMPARISON: [facility], CR, XR HIP 2VW RT, 02/03/2017, 23:11. [facility], CT , CT HIP RT WO CON, 02/03/2017, 22:51. [facility], CR, XR PELVIS W LATERAL HIP RT, 017, 19:33. FINDINGS: Bones: Patient is status post right hip arthroplasty, with hardware components in expected positions . The hip joint appears congruent. The visualized bony structures appear intact. Soft tissues: Overlying postoperative changes are noted. No suspicious soft tissue densities. IMPRESSION: Right hip prosthesis in anatomic alignment. Dictated by: Aurora Thompson M.D. on 02/04/2017 at 20:19 Approved by: Aurora Thompson M.D. on 02/04/2017 at 20:20
[2017-02-04] MEDS: Senna-Docusate 8.6-50 mg Tablet PO SCH (21:17)
--- NOTE | 2017-02-04 23:52 | CONS ---
[address] [address] CONSULTATION REPORT PATIENT: TERESA GLASS : 1955 MR#: [id number] ADMIT: 02/03/2017 JOB ID: [id number] DATE OF SERVICE: 02/04/2017 CHIEF COMPLAINT: This is a 62-year-old female, who was admitted early in the morning after a fall under the influence of alcohol intoxication. The patient sustained a vertically angulated right femoral neck fracture. The patient states she was walking up some wet stairs, slipped and fell backwards, striking her right hip. The patient did not lose consciousness. The patient reports that she had two large alcoholic beverages which may have accounted to perhaps four or more hard alcoholic drinks at the time. CURRENT MEDICATIONS: 1. Lisinopril. 2. Fluoxetine. 3. Glucosamine. 4. Naproxen. PAST MEDICAL HISTORY: Positive for hypertension. PRIOR SURGERY: Right ankle and breast reduction. FAMILY HISTORY: Positive for liver cancer and breast and lung cancer. SOCIAL HISTORY: Patient drinks occasionally on the weekends. It is unknown if she ever smoked. The patient normally works as a chairman. REVIEW OF SYSTEMS: HEENT: No headache or dizziness. No blurring of vision. No decreased hearing. Respiratory: No shortness of breath. Cardiovascular: No chest pain. GI: No nausea, vomiting. : No dysuria. Musculoskeletal: Right hip pain. PHYSICAL EXAMINATION: A 179 cm, 129.6 kg female. Temperature 36.8, pulse ox 92, respiration 22, blood pressure 157/99. The patient is uncomfortable with right hip pain. Right leg is somewhat shortened. Calves are soft. No abrasions over the hip noted. The patient does have truncal obesity. LABORATORY TESTING: Showed a white count of 5400, hemoglobin 13.2, hematocrit 40.5, platelets 173,000. Sodium 133, potassium 4.1, chloride 95, CO2 of 21, BUN 28, creatinine 0.73, glucose 125, alcohol level was 220. Repeat labs show white count 6200, hemoglobin 12.7, hematocrit 37.8, platelet count 182,000. Sodium 140, potassium 4.4, chloride 100, CO2 22, BUN 25, creatinine 0.63 with a glucose 101. Liver function tests within normal limits. Blood alcohol level was actually 242 on admission. Urinalysis only showed 0-5 white cells. No bacteria seen. X-RAYS: Show that she has a displaced right femoral neck fracture that is vertically oriented. IMPRESSION: 1. Displaced right femoral neck fracture. 2. Exogenous obesity. 3. Hypertension. 4. Recent episode of alcohol intoxication. PLAN: With the patient's age and the displaced fracture, she would best be served with a prosthetic implant. Since she is only 52 years of age, it might be in her best interest to have a total hip replacement rather than a hemiarthroplasty. I would be able to perform the hemiarthroplasty, but my colleagues is one of the physician that performs total hip arthroplasties. He has agreed to take the patient to surgery today for surgical intervention. He will discuss surgical options with the patient. The patient has been kept n.p.o. for surgery.
[2017-02-05] VITALS (8 sets, daily range): BP systolic 123–156; BP diastolic 76–98; PULSE 101–132; RESP 16–20; O2SAT 93–98
[2017-02-05] MEDS: CeFAZolin Inj 3 GM in Dextrose 5% 50 ML IV SCH ×2 (00:26→09:10)
[2017-02-05] MEDS: Sodium Chloride LOK Flush 10 mL Syringe IV SCH ×3 (00:27→16:30)
--- NOTE | 2017-02-05 01:51 | OP ---
[address] [address] OPERATIVE REPORT PATIENT: TERESA GLASS : 1955 MR#: [id number] ADMIT: 02/03/2017 JOB ID: [id number] DATE OF SURGERY: 02/04/2017 PREOPERATIVE DIAGNOSIS(ES): Right femoral neck fracture. POSTOPERATIVE DIAGNOSIS(ES): Right femoral neck fracture. PROCEDURE: Right hip total hip arthroplasty. SURGEON: Sebas Allen DO. POWERHOUSE OPERATOR: Don Bunch PA-C. INDICATIONS: The patient is a 62-year-old female who fell yesterday, after having some alcoholic beverages while watching the [employer] game, on some slippery leaves, and sustained a right femoral neck fracture. She was unable to walk after the fall. She was admitted the hospital and I was asked to see the patient by my partner, Dr. Reddy, for consideration of possible total hip arthroplasty. We discussed treatment options for this including open reduction and internal fixation with dynamic hip screw, total hip arthroplasty and bipolar arthroplasty, and she wished to proceed with a total hip arthroplasty. After discussing this with the patient and her , we discussed the risks, benefits and possible complications of surgery, including, but not limited to injury to the nerves and vessels, infection, bleeding, incomplete relief of symptoms, stiffness, dislocation, deep venous thrombosis. All questions were answered and the patient and her wished to proceed. A surgical rn was required for the successful completion of this procedure. PROCEDURE IN DETAIL: The patient was brought to the operating room. She was given a preoperative antibiotic 1 g TXA preoperatively and general anesthetic. Placed comfortably into the right lateral decubitus position. The right hip was sterilely prepped and draped. An incision was made centered over the greater trochanter in line with the femur. Dissection was carefully carried through the subcutaneous tissue. Electrocautery was used for hemostasis. A split was then made in the iliotibial band overlying the trochanter and the Charnley retractor was then placed. A split was then made in the gluteus medius between the junction of the anterior 1/3 and posterior 2/3, and an anterior sleeve of tissue was then released off of the femoral neck leaving a cuff of tissue for repair. This was taken to a point just distal to vastus tubercle. A saw was used to freshen the neck cut and the femoral head was then removed using a corkscrew and tenaculum. The femur was then prepared with box osteotome and this was broached sequentially up to a size 5. Calcar planer was used to smooth the top of the femur. Next, there was some comminution noted in the truck assembler medial hip area, but I sank the broach a bit lower than normal, calcar planed, and got into what I felt was some good quality bone in the calcar region. Anterior and posterior retractors were then placed in the acetabulum and the pulvinar and labrum were removed. The hip was then reamed sequentially from a 43 up to a 53, and a 54 cup was chosen, impacted into position. Care was taken to ensure the appropriate abduction and anteversion. A single superior dome screw was used to add additional fixation and the hip was then trialed with a 54 x 36 plus 4 lateralized liner and a 6 standard stem with a 36 head. We trialed the 1.5, and the 5, and felt that the 5 worked quite nicely, provided excellent stability, equal leg lengths; and therefore, these implants were chosen, beginning with the DePuy Axtell 54 x 36 plus 4 lateralized liner, followed by the DePuy Tri-Lock stem and the 36 plus 5 ceramic head. The hip was reduced, irrigated, and then the capsule was closed with #5 Ethibond. The gluteus medius was repaired with #5 Ethibond. The remainder of the vastus lateralis and gluteus medius were repaired with #1 Surgilon. The iliotibial band was repaired with #1 Surgilon and 0-Vicryl. The subcu was closed with 2-0 Vicryl and then 2-0 V-Loc and the skin was closed with a running subcuticular 3-0 Stratafix. Steri-Strips were added and a mixture of saline, Exparel and Marcaine was added as an adjunct local anesthetic. Sterile dressings were applied. Patient tolerated the procedure well. Blood loss was 150 cc. POSTOPERATIVE PROTOCOL: Will have the patient weightbear to tolerance, use a walker for ambulation with no active abduction for six weeks postoperatively, no flexion past 90 degrees. Will plan to use Lovenox for 21 days postoperatively for DVT prophylaxis.
[2017-02-05] MEDS: HYDROmorphone 1 mg/mL Inj IVPUSH PRN ×4 (04:06→19:27)
--- NOTE | 2017-02-05 05:15 | NUR ---
Pain/activity Pt reporting pain up to 11/26 and is taking Oxycodone 10mg with Dilaudid for breakthrough pain. Pt reports this to be effective. Pt now on RA, 94% O2 sats. [place] patent and draining clear urine. Pt tolerating turns in bed. Pt has only had clear liquids so far, denies nausea but not wanting anything to eat so far.
[2017-02-05] MEDS: 0.9% Sodium Chloride 1,000 ML IV SCH ×3 (05:27→17:22)
[2017-02-05 06:22] LABS: BASOPHILS % (AUTO) 0 % (0-3); EOSINOPHILS % (AUTO) 0 % (0-5); MONOCYTES % (AUTO) 5.7 % (4-12); Mean Corpuscular Hemoglobin 32.1 pg (27.0-35.0); Mean Corpuscular Volume 98.6 fL (81-100); NEUTROPHILS % (AUTO) 87.7 % (40-74); Platelet Count 155 bil/L (150-400)
--- NOTE | 2017-02-05 09:08 | PCM.PNORTH ---
Subjective Date of Service: Feb 05, 2017 Visit Information: Reason for Visit Hip Fracture,Alcohol Intoxication Surgery/Surgery Date R RAVEN 02/04/17 Post-Op Day # Date of Admission: Feb 03, 2017 at 22:53 Hospital Day # Subjective Status post day #1 right total hip arthroplasty. Patient states that she is feeling pretty good, her hip is a little achy but this is well controlled. Her plan is definitely to go home, would like to do this in the next couple of days as she has help there and feels like she would be happier at home. She does have about 4 steps getting into her home. Postop General: No Complaints, No Shortness of Breath, No Chest Pain Objective Exam Objective Patient is alert and oriented 3. Answering questions appropriately. Patient is sitting up in the bed and not in acute distress today. Dressing is clean dry and intact. Calf is soft and nontender. Sensation and pulses intact, patient able to wiggle toes. Vital Signs and I/O Vital Sign - Last Date Time Temp Pulse Resp B/P Pulse Ox O2 Delivery O2 Flow Rate FiO2 02/05/17 06:17 36.9 101 18 147/85 98 Room Air 02/04/17 19:13 8 Intake and Output 02/04/17 02/04/17 02/05/17 Cumulative From/Thru 15:00 23:00 07:00 02/03/17 19:14 - 02/05/17 06:17 Intake Total 0 ml 1770 ml 1239 ml 3389 ml Output Total 700 ml 1400 ml 1150 ml 3250 ml Balance -700 ml 370 ml 89 ml 139 ml Intake Oral 0 ml 0 ml 450 ml 450 ml IV Total 1770 ml 789 ml 2939 ml Output Urine Total 700 ml 1250 ml 1150 ml 3100 ml Estimated Blood Loss 150 ml 150 ml # Voids 2 # Bowel Movements 0 0 0 Lab & Micro Results Laboratory Tests Test 02/04/17 17:44 02/05/17 05:11 Urine Color Straw (YELLOW) Urine Appearance Clear (CLEAR,HAZY) Urine pH 5.5 (5.0-8.0) Urine Specific Cobb 1.005 (1.003-1.035) Urine Protein Negativemg/dL (NEG,TRACE) Urine Glucose (UA) Negativemg/dL (NEGATIVE) Urine Ketones Negativemg/dL (NEGATIVE) Urine Occult Blood Negative (NEGATIVE) Urine Nitrite Negative (NEGATIVE) Urine Bilirubin Negative (NEGATIVE) Urine Urobilinogen Normalmg/dL (NORMAL) Urine Leukocyte Esterase Negative (NEGATIVE) Urine RBC 0-2/hpf (0-2) Urine WBC 0-5/hpf (0-5) Urine Epithelial Cells None/hpf (NONE-MOD) Urine Crystals None seen (NONE SEEN) Urine Bacteria None/hpf (NONE-FEW) Urine Hyaline Casts None/lpf (NONE) Urine Granular Casts None seen (NONE SEEN) Urine Waxy Casts None seen (NONE SEEN) Urine Red Blood Cell Casts None seen (NONE SEEN) Urine White Blood Cell Casts None seen (NONE SEEN) Urine Mucus None seen (None Seen) Urine Trichomonas None seen (NONE SEEN) Urine Yeast None (NONE SEEN) Urinalysis Comment None Urine Culture Reflexed Not indicated White Blood Count 7.0th/mm3 (3.8-10.1) Red Blood Count 3.52mil/mm3 (3.90-5.20) Hemoglobin 11.3g/dL (12.0-15.6) Hematocrit 34.7% (35.0-46.0) Mean Corpuscular Volume 98.6fL (81-100) Mean Corpuscular Hemoglobin 32.1pg (27.0-35.0) Mean Corpuscular Hemoglobin Concent 32.6% (32.0-37.0) Red Cell Distribution Width 12.3% (12.3-15.4) Platelet Count 155bil/L (150-400) Neutrophils (%) (Auto) 87.7% (40-74) Lymphocytes (%) (Auto) 6.3% (14-46) Monocytes (%) (Auto) 5.7% (4-12) Eosinophils (%) (Auto) 0% (0-5) Basophils (%) (Auto) 0% (0-3) Sodium Level 138mEq/L (134-144) Potassium Level 4.6mEq/L (3.5-5.2) Chloride Level 102mEq/L (97-108) Carbon Dioxide Level 23mmol/L (18-29) Blood Urea Nitrogen 18mg/dL (8-27) Creatinine 0.72mg/dL (0.57-1.00) Estimat Glomerular Filtration Rate 118mL/min (>59) Glucose Level 159mg/dL (60-99) Calcium Level 8.5mg/dL (8.5-10.1) Microbiology 02/04/17 MRSA (PCR) - Final, Complete Result Diagram: 02/05/17 0511 02/05/17 05 Assessment & Plan Impression Status post day #1 right total hip arthroplasty. Pain well controlled, patient feels pretty good. Problems: Plan Patient will begin working with physical therapy today for out of bed assist and gait training with front-wheeled walker. Patient able to weight-bear as tolerated. Patient will utilize Lovenox 40 mg subcutaneous daily 3 weeks, then aspirin 325 mg by mouth twice a day for 3 weeks for DVT prophylaxis. Dressing will be changed by PA tomorrow. Encouraged patient to be out of bed and use bedside commode versus restroom so that we may remove the catheter today. We will continue to use oral narcotics including [place] for pain control while in the hospital, anticipate being sent home on this as well. Anticipated that the patient will stay in the hospital for 1-2 more days and will plan to discharge to home as this is her desire. VTE Prophylaxis: Sub-Q Heparin (Unfractionated) Resuscitation Status: CPR: Attempt Resuscitation Don Bunch PA-C Feb 05, 2017 09:07
[2017-02-05] MEDS: Senna-Docusate 8.6-50 mg Tablet PO SCH ×2 (11:14→23:53)
[2017-02-05] MEDS ORDERED: 0.9% Sodium Chloride 1,000 ML IV ONE (15:00)
--- NOTE | 2017-02-05 15:37 | PCM.PNMED ---
Subjective Date of Service Feb 05, 2017 Subjective patient underwent THR , pain controlled. patient tachycardic ,denies excessive alcohol use. she states she only drinks on weekends . she states she never had any history of withdrawal symptoms Exam Vital Signs Vital Sign - Last Date Time Temp Pulse Resp B/P Pulse Ox O2 Delivery O2 Flow Rate FiO2 02/05/17 13:35 37.1 117 18 140/81 94 Room Air 02/04/17 19:13 8 Intake and Output 02/04/17 02/04/17 02/05/17 Cumulative From/Thru 15:00 23:00 07:00 02/03/17 19:14 - 02/05/17 06:17 Intake Total 0 ml 1770 ml 1239 ml 3389 ml Output Total 700 ml 1400 ml 1150 ml 3250 ml Balance -700 ml 370 ml 89 ml 139 ml Intake Oral 0 ml 0 ml 450 ml 450 ml IV Total 1770 ml 789 ml 2939 ml Output Urine Total 700 ml 1250 ml 1150 ml 3100 ml Estimated Blood Loss 150 ml 150 ml # Voids 2 # Bowel Movements 0 0 0 Exam General: Alert, Oriented X3, Cooperative, no acute distress Eyes: PERRLA, Scleral Anicteric Mouth: Mouth Normal, Mucous Membranes Moist/[place] Neck: Supple, no Thyromegaly, trachea central. Chest & Lungs: Clear to auscultation & percussion, No adventitious breath sounds, no crackles, no wheeze Cardiovascular: Normal S1, Normal S2, No Murmurs/Rubs/Gallops, Regular Rate/ Rhythm Pulses: Radial (present and equal), Dorsalis Pedi (present and equal) Abdomen: Soft,Non-tender, Non-distended, Normoactive bowel tones. Musculoskeletal: right leg externally rotated Extremities: No edema, no cyanosis, no clubbing. Skin: No rashes. Warm and dry, no erythematous areas Neurological: Grossly neurologically intact, Normal Speech, Sensation Intact Lymphatic: Lymph nodes Cervical and Axillary not palpable. IVs and Medications Medications Reviewed: Medications were reviewed in detail Lab and Diagnostics Result Diagram: 02/05/17 0502/05/17 0511 X-Rays, CTs and MRIs PROCEDURE: X-RAY CHEST ONE VIEW, PORTABLE ([id number]) INDICATIONS: fall TECHNIQUE: One view of the chest was acquired. COMPARISON: None. FINDINGS: Surgical changes and devices: None. Lungs and pleura: No pleural effusions or pneumothorax. Lungs are clear. Mediastinum: Mediastinal contours appear normal. Heart size is normal. Bones and chest wall: No suspicious bony lesions. Overlying soft tissues appear unremarkable. IMPRESSION: No acute process. Dictated by: Juan Jorgensen M.D. on 02/03/2017 at 20:21 Approved by: Juan Jorgensen M.D. on 02/03/2017 at 20:22 Patient Name: TERESA GLASS MR#: [id number] [place] [facility] [place] Phys: LUCIANO HANSEN MD Date of Service: 02/03/171927 PROCEDURE: X-RAY PELVIS W/LAT HIP (RT) ([id number]) INDICATIONS: GLF on to Rt hip, RT hip pain TECHNIQUE: AP pelvis with lateral view(s) of the right hip(s). COMPARISON: None. FINDINGS: Bones: Bony step-off involves the right femoral neck. Pelvic ring appears intact. No suspicious bony lesions. Soft tissues: The visualized bowel gas pattern is normal. No suspicious soft tissue calcifications. IMPRESSION: Probable right femoral neck fracture. Recommend confirmation with additional plain film imaging or CT. Dictated by: Juan Jorgensen M.D. on 02/03/2017 at 20:20 Approved by: Juan Jorgensen M.D. on 02/03/2017 at 20:21 ROCEDURE: CT HIP RIGHT W/O CONTRAST ([id number]) INDICATIONS: hip pain TECHNIQUE: Noncontrast 3 mm axial sections acquired through the bony pelvis. Additional 3 mm axial sections acquired through the symptomatic hip joint, with coronal and sagittal reformats. COMPARISON: [facility], CR, XR PELVIS W LATERAL HIP RT, 02/03/2017, 19:33. [facility], CR, XR FEMUR 2VW RT, 02/03/2017, 23:11. [facility], CR, XR HIP 2VW RT, 02/03/2017, 23:11. FINDINGS: Image quality: Excellent. Bones: There is a femoral neck fracture with 1 cm anterior displacement of the distal fracture fragment and impaction and angulation. There is possible fracture of the sacral body although motion artifacts could be responsible for the appearance. Degenerative changes noted in the lumbar spine. Soft tissues: No soft tissue mass or hematoma. IMPRESSION: 1. Right femoral neck fracture with mild displacement, impaction and angulation. 2. Possible sacral fracture versus motion artifacts. If clinically indicated, MRI of sacrum without contrast is suggested for further evaluation. Dictated by: Aurora Thompson M.D. on 02/04/2017 at 8:32 Additional Diagnostics DATE OF SURGERY: 02/04/2017 PREOPERATIVE DIAGNOSIS(ES): Right femoral neck fracture. POSTOPERATIVE DIAGNOSIS(ES): Right femoral neck fracture. PROCEDURE: Right hip total hip arthroplasty. SURGEON: Sebas Allen DO. MACHINE PULLER OVER: Don Bunch PA-C. Assessment & Plan 62yoF with past medical history of HTN admitted following mechanical ground level fall with right hip fracture. # Right hip fracture s/p Right hip total hip arthroplasty., acute, POA -subsequent to mechanical ground level fall - mIVF -ortho consulted, recs appreciated -EKG RBBB of unknown chronicity .patient able to take flights of stair and ambulate with out chest pain or dyspnea # sinus tachycardia ,poa -pain controlled. patient tachycardic ,denies excessive alcohol use. she states she only drinks on weekends . she states she never had any history of withdrawal symptoms -PE unlikely, POD1 only,no leg pain. will do EKG,TSH,trops, -will also give 1 L NS bolus -continue monitoring telemetry # RBBB -no baseline EKG to compare with -echo unremarkable -no chest pain ,SOB or leg swelling # ground level fall -mechanical and alcohol contributing # hyponatremia, acute, POA,resolved -patient with mildly low sodium on admission # ETOH use, acute, POA -possible contributing factor to fall -no history of withdrawal -continue to monitor # elevated glucose, acute, POA -no history of diabetes -HGBa1c added to admission labs, pending # HTN, chronic -BP mildly elevated on admission -continue home medications Patient admitted under inpatient status and will likely be admitted for >2 midnights. disposition:discharge in 1-2 weeks GI Prophylaxis: Not indicated VTE Prophylaxis: Sub-Q Heparin (Unfractionated) VTE Mechanical Devices: Intermittant Pneumatic CD Resuscitation Status: CPR: Attempt Resuscitation Kimo Kincaid MD Feb 05, 2017 15:37
[2017-02-05 16:01] LABS: TROPONIN T < 0.010 ug/L (0.0-0.011)
--- NOTE | 2017-02-05 17:06 | NUR ---
Social Work: Initial Assessment/Multidisciplinary Rounds D: EMR reviewed. Please see Initial Assessment linked to this note for more information. Pt is a 62 year old female admitted [place] with a readmit risk score of 0 for hip fracture, alcohol intoxication per H&P. Pt's insurance is [facility]. PCP is Monroe Varghese MD. Pt discussed in multidisciplinary rounds, pt is POD 1. PT evaluated pt today, recommending SNF but it is likely pt will progress to home with HHPT or outpt PT. CD assessment order received. SW met with pt at bedside to conduct initial assessment. Pt was alert and oriented x3. SW explained role and wrote phone number on white board. SW provided [facility] Discharge Planning Checklist and encouraged pt to contact SW for any discharge planning questions. Pt lives at home with her spouse in [place]. Pt is independent with all ADLs at baseline. Pt uses no DME at baseline, but her is going to get her a walker for use at discharge. Pt declined [employer] assisting with obtaining walker, pt agreeable to contacting [employer] if this changes. Pt drives. Pt has no HH or SNF history. Pt has no LTC or VA benefits. Pt has no DPOA on file, pt is talking with her about this but declined paperwork at this time. Pt is aware the PT recommendation is SNF at this time but is hopeful to progress to returning home. Pt is not homebound at baseline but may become so temporarily given her injury. Current plan is d/c home when it is feasible for her to navigate stairs, to assist at home, R/O HHPT needs at d/c. Pt agreeable to this plan, SW will continue to follow. A: Pt who is independent at baseline and has the capacity for self-care. P: Current plan is d/c home when it is feasible for her to navigate stairs, to assist at home, R/O HHPT needs at d/c. SW will continue to follow for needs until time of discharge. AIDEN Fernandez Addendum: 02/05/17 at 1710 by DARIANA ALY Amended: Links added.
--- NOTE | 2017-02-05 17:10 | NUR ---
Social Work- Chemical Dependency Assessment Pt is a 62 year old female admitted for a hip fracture after a fall while intoxicated. CD assessment order received, ADAM met with pt at bedside to discuss etoh use. Pt declined discussing etoh use at this time. Pt states she is not concerned with her etoh use and while it was a contributing factor to her fall she does not identify this as a point of concern. States she drinks socially on weekends. She was drinking over the weekend at a green party while family watched the [employer]. Pt declined conversation and outpt resources at this time. SW encouraged her to reach out if needs changed. Pt agreeable. AIDEN Fernandez
--- NOTE | 2017-02-05 17:57 | NUR ---
Harish/Supriya Pt apprehensive re: harish crane. Educated pt on need for removal. Pt understanding and okay. Wanted to wait till after PT and in afternoon. Harish out at 1340. Pt educated on the need to void within 4 hrs - understanding. Pt remaining tachycardic - asymptomatic. aware. Ordered EKG, tele remains in place. Pt did state feeling anxious today d/t PT and moreira out. 1L NS bolus given and per MD wanting IVF continuous NS at 100ml/hr post bolus. Pt understanding. Care continues. Addendum: 02/05/17 at 1844 by SHERYL HALL RN Pt up to BSC post moreira removal - voided. Pt stating feeling like she was able to empty her bladder.
[2017-02-05] MEDS: hydrOXYzine Pamoate 25 mg Capsule PO PRN (23:53)
[2017-02-06] VITALS (7 sets, daily range): BP systolic 124–164; BP diastolic 78–93; PULSE 106–119; RESP 16–20; O2SAT 92–97
[2017-02-06] MEDS: Sodium Chloride LOK Flush 10 mL Syringe IV SCH ×3 (00:30→17:46)
--- NOTE | 2017-02-06 03:04 | NUR ---
ACTIVITY/PAIN: Pt. resting in bed most of the night. Has been up to the BSC with one person assist. Using her call light appropriately. Pt. c/o pain after going back to bed, requested pain medication. Given 10 mg of Roxicodone and 25 mg of Vistaril. Helpful, resting in bed without any other c/o discomfort. A & O, VSS. On going care.
[2017-02-06] MEDS: 0.9% Sodium Chloride 1,000 ML IV SCH (03:26)
[2017-02-06] MEDS: hydrOXYzine Pamoate 25 mg Capsule PO PRN ×2 (05:07→19:16)
[2017-02-06 06:04] LABS: BASOPHILS % (AUTO) 0.4 % (0-3); EOSINOPHILS % (AUTO) 2.9 % (0-5); MONOCYTES % (AUTO) 10.9 % (4-12); Mean Corpuscular Hemoglobin 32.1 pg (27.0-35.0); NEUTROPHILS % (AUTO) 59.3 % (40-74); Platelet Count 125 bil/L (150-400)
[2017-02-06] MEDS: Senna-Docusate 8.6-50 mg Tablet PO SCH ×2 (08:54→19:17)
--- NOTE | 2017-02-06 08:58 | DRSVH ---
PROCEDURE: X-RAY CHEST ONE VIEW, PORTABLE ([id number]) INDICATIONS: postop fever TECHNIQUE: One view of the chest was acquired. COMPARISON: [facility], CR, XR CHEST 1VW (PORTABLE), 02/03/2017, 19:33. FINDINGS: Surgical changes and devices: None. Lungs and pleura: On this semiupright portable chest examination, no large pneumothorax or large ple ural effusions are seen. No focal infiltrates are seen. An incomplete inspiratory result is noted, causing a crowded appearance to the lung markings. Mediastinum: Mediastinal contours appear normal. Heart size is normal. Bones and chest wall: No suspicious bony lesions. Age-appropriate bony degenerative changes are see n. Overlying soft tissues appear unremarkable. IMPRESSION: Limited portable chest examination, without a significant cardiopulmonary abnormality identified. If there is clinical concern for a developing pulmonary process, a short-term followup chest series ( with PA and lateral views, performed in deep inspiration) is suggested for further evaluation. Dictated by: Agus Rainey M.D. on 02/06/2017 at 8:54 Approved by: Agus Rainey M.D. on 02/06/2017 at 8:56
--- NOTE | 2017-02-06 10:31 | PCM.PNORTH ---
Subjective Date of Service: Feb 06, 2017 Visit Information: Reason for Visit Hip Fracture,Alcohol Intoxication Surgery/Surgery Date R RAVEN 02/04/17 Post-Op Day # 2 Date of Admission: Feb 03, 2017 at 22:53 Hospital Day # Subjective Patient feels that she is doing pretty well today. She walked in the hallway with therapy this morning. She has not yet walked stairs. Her is going out today to get medical equipment for home. She is using oxycodone for pain. Postop General: No Complaints, No Shortness of Breath, No Chest Pain Pain Management: PO, IV Push Objective Exam Objective Patient is seen sitting up in bed Vital Signs and I/O Vital Sign - Last Date Time Temp Pulse Resp B/P Pulse Ox O2 Delivery O2 Flow Rate FiO2 02/06/17 09:10 106 02/06/17 04:44 37.4 20 164/93 92 Room Air 02/04/17 19:13 8 Intake and Output 02/05/17 02/05/17 02/06/17 Cumulative From/Thru 15:00 23:00 07:00 02/03/17 19:14 - 02/06/17 05:56 Intake Total 888 ml 1722 ml 1317 ml 7316 ml Output Total 1750 ml 800 ml 5800 ml Balance 888 ml -28 ml 517 ml 1516 ml Intake Oral 620 ml 300 ml 1370 ml IV Total 888 ml 1102 ml 1017 ml 5946 ml Output Urine Total 1750 ml 800 ml 5650 ml Estimated Blood Loss 150 ml # Voids 2 # Bowel Movements 0 0 0 Lab & Micro Results Laboratory Tests Test 02/05/17 15:17 02/06/17 05:11 02/06/17 10:17 Sodium Level 138mEq/L (134-144) 140mEq/L (134-144) Potassium Level 3.9mEq/L (3.5-5.2) 3.8mEq/L (3.5-5.2) Chloride Level 100mEq/L (97-108) 103mEq/L (97-108) Carbon Dioxide Level 23mmol/L (18-29) 22mmol/L (18-29) Blood Urea Nitrogen 17mg/dL (8-27) 16mg/dL (8-27) Creatinine 0.81mg/dL (0.57-1.00) 0.68mg/dL (0.57-1.00) Estimat Glomerular Filtration Rate 103mL/min (>59) 126mL/min (>59) Glucose Level 161mg/dL (60-99) 108mg/dL (60-99) Lactic Acid Level 1.2mmol/L (0.4-2.0) Calcium Level 8.6mg/dL (8.5-10.1) 8.2mg/dL (8.5-10.1) Troponin T < 0.010ug/L (0.0-0.011) Thyroid Stimulating Hormone (TSH) 2.590uIU/mL (0.450-4.500) Free Thyroxine 1.37ng/dL (0.82-1.77) White Blood Count 5.1th/mm3 (3.8-10.1) Red Blood Count 3.18mil/mm3 (3.90-5.20) Hemoglobin 10.2g/dL (12.0-15.6) Hematocrit 31.8% (35.0-46.0) Mean Corpuscular Volume 100.0fL (81-100) Mean Corpuscular Hemoglobin 32.1pg (27.0-35.0) Mean Corpuscular Hemoglobin Concent 32.1% (32.0-37.0) Red Cell Distribution Width 12.6% (12.3-15.4) Platelet Count 125bil/L (150-400) Neutrophils (%) (Auto) 59.3% (40-74) Lymphocytes (%) (Auto) 26.3% (14-46) Monocytes (%) (Auto) 10.9% (4-12) Eosinophils (%) (Auto) 2.9% (0-5) Basophils (%) (Auto) 0.4% (0-3) Total Bilirubin 0.8mg/dL (0.0-1.2) Aspartate Amino Transf (AST/SGOT) 20U/L (0-50) Alanine Aminotransferase (ALT/SGPT) 10U/L (0-32) Alkaline Phosphatase 72U/L (25-165) Total Protein 5.8g/dL (6.4-8.4) Albumin 3.3g/dL (3.4-5.0) Procalcitonin 0.12ng/mL (0.00-0.08) Microbiology 02/04/17 MRSA (PCR) - Final, Complete Result Diagram: 02/06/17 0511 02/06/17 0511 General Appearance: Alert, Oriented X3, Cooperative, No Acute Distress Extremities: Distal Pulses Palpable, No Compartment Syndrom Noted, Thigh & Calf Soft/Nontender Postop Sensory Motor: Distal Motor Intact, Distal Sensation Intact, NVI Distally SURGICAL WOUND : Wound Location/Description Right hip: Surgical dressing is removed. The wound is well approximated and Steri-Strips are intact. There is minimal serous drainage on the bandage. The wound is cleansed with hydrogen peroxide. The wound is dressed with Silverlon and Island dressings. Activity: Activity per PT Catheters: None Assessment & Plan Impression POD #2 status post right total hip arthroplasty for fracture Problems: Plan Weightbearing: Weightbearing as tolerated with wheeled walker DVT prophylaxis: Lovenox 40 mg subcutaneous 3 weeks followed by aspirin 325 mg twice a day 3 weeks Physical therapy for transfers, progressive ambulation, therapeutic exercise. She will work on stairs this afternoon with PT. Wound care: Dressing changed today by SHANT with Silverlon, Island dressing Discharge plan: Discharge home tomorrow if medically stable. Follow-up plan: In 2 weeks at [facility] with [facility] for wound check and at [address] Allen with x-rays Pain Management: Oxycodone, Vistaril VTE Prophylaxis: Sub-Q Enoxaparin, SCDs Resuscitation Status: CPR: Attempt Resuscitation Siena Kwok PA-C Feb 06, 2017 10:31
[2017-02-06 10:43] LABS: APPEARANCE,URINE CLEAR (CLEAR,HAZY); COLOR,URINE YELLOW (YELLOW); OCCULT BLOOD,URINE TRACE (NEGATIVE)
[2017-02-06 10:44] LABS: UROBILINOGEN,URINE NORMAL (NORMAL)
--- NOTE | 2017-02-06 10:49 | NUR ---
Evaluation completed. Please go to "Notes" then click on "Assessments and Notes" (bottom left corner of screen). Then select appropriate discipline tab on top of screen.
--- NOTE | 2017-02-06 16:27 | PCM.PNMED ---
Subjective Date of Service Feb 06, 2017 Subjective Patient remained tachycardic. She states she has productive cough which started a few days prior to hospitalization and fall accident. Denies dyspnea. Denies urinary complaints. Also has low-grade fever today. Exam Vital Signs Vital Sign - Last Date Time Temp Pulse Resp B/P Pulse Ox O2 Delivery O2 Flow Rate FiO2 02/06/17 15:55 Room Air 02/06/17 15:40 116 17 153/87 95 02/06/17 11:09 38.3 02/04/17 19:13 8 Intake and Output 02/05/17 02/05/17 02/06/17 Cumulative From/Thru 14:59 22:59 06:59 02/03/17 19:14 - 02/06/17 05:56 Intake Total 888 ml 1722 ml 1317 ml 7316 ml Output Total 1750 ml 800 ml 5800 ml Balance 888 ml -28 ml 517 ml 1516 ml Intake Oral 620 ml 300 ml 1370 ml IV Total 888 ml 1102 ml 1017 ml 5946 ml Output Urine Total 1750 ml 800 ml 5650 ml Estimated Blood Loss 150 ml # Voids 2 # Bowel Movements 0 0 0 Exam General: Alert, Oriented X3, Cooperative, no acute distress Eyes: PERRLA, Scleral Anicteric Mouth: Mouth Normal, Mucous Membranes Moist/[place] Neck: Supple, no Thyromegaly, trachea central. Chest & Lungs: Clear to auscultation & percussion, No adventitious breath sounds, no crackles, no wheeze Cardiovascular: Normal S1, Normal S2, No Murmurs/Rubs/Gallops, Regular Rate/ Rhythm Pulses: Radial (present and equal), Dorsalis Pedi (present and equal) Abdomen: Soft,Non-tender, Non-distended, Normoactive bowel tones. Musculoskeletal: right leg externally rotated Extremities: No edema, no cyanosis, no clubbing. Skin: No rashes. Warm and dry, no erythematous areas Neurological: Grossly neurologically intact, Normal Speech, Sensation Intact Lymphatic: Lymph nodes Cervical and Axillary not palpable. IVs and Medications Medications Reviewed: Medications were reviewed in detail Lab and Diagnostics Result Diagram: 02/06/17 0511 02/06/17 0511 X-Rays, CTs and MRIs PROCEDURE: X-RAY CHEST ONE VIEW, PORTABLE ([id number]) INDICATIONS: fall TECHNIQUE: One view of the chest was acquired. COMPARISON: None. FINDINGS: Surgical changes and devices: None. Lungs and pleura: No pleural effusions or pneumothorax. Lungs are clear. Mediastinum: Mediastinal contours appear normal. Heart size is normal. Bones and chest wall: No suspicious bony lesions. Overlying soft tissues appear unremarkable. IMPRESSION: No acute process. Dictated by: Juan Jorgensen M.D. on 02/03/2017 at 20:21 Approved by: Juan Jorgensen M.D. on 02/03/2017 at 20:22 Patient Name: TERESA GLASS MR#: [id number] [place] [facility] [place] Ordering Phys: LUCIANO HANSEN MD Date of Service: 02/03/171927 PROCEDURE: X-RAY PELVIS W/LAT HIP (RT) ([id number]) INDICATIONS: GLF on to Rt hip, RT hip pain TECHNIQUE: AP pelvis with lateral view(s) of the right hip(s). COMPARISON: None. FINDINGS: Bones: Bony step-off involves the right femoral neck. Pelvic ring appears intact. No suspicious bony lesions. Soft tissues: The visualized bowel gas pattern is normal. No suspicious soft tissue calcifications. IMPRESSION: Probable right femoral neck fracture. Recommend confirmation with additional plain film imaging or CT. Dictated by: Juan Jorgensen M.D. on 02/03/2017 at 20:20 Approved by: Juan Jorgensen M.D. on 02/03/2017 at 20:21 ROCEDURE: CT HIP RIGHT W/O CONTRAST ([id number]) INDICATIONS: hip pain TECHNIQUE: Noncontrast 3 mm axial sections acquired through the bony pelvis. Additional 3 mm axial sections acquired through the symptomatic hip joint, with coronal and sagittal reformats. COMPARISON: [facility], CR, XR PELVIS W LATERAL HIP RT, 02/03/2017, 19:33. [facility], CR, XR FEMUR 2VW RT, 02/03/2017, 23:11. [facility], CR, XR HIP 2VW RT, 02/03/2017, 23:11. FINDINGS: Image quality: Excellent. Bones: There is a femoral neck fracture with 1 cm anterior displacement of the distal fracture fragment and impaction and angulation. There is possible fracture of the sacral body although motion artifacts could be responsible for the appearance. Degenerative changes noted in the lumbar spine. Soft tissues: No soft tissue mass or hematoma. IMPRESSION: 1. Right femoral neck fracture with mild displacement, impaction and angulation. 2. Possible sacral fracture versus motion artifacts. If clinically indicated, MRI of sacrum without contrast is suggested for further evaluation. Dictated by: Aurora Thompson M.D. on 02/04/2017 at 8:32 Additional Diagnostics DATE OF SURGERY: 02/04/2017 PREOPERATIVE DIAGNOSIS(ES): Right femoral neck fracture. POSTOPERATIVE DIAGNOSIS(ES): Right femoral neck fracture. PROCEDURE: Right hip total hip arthroplasty. SURGEON: Sebas Allen DO. HORTICULTURE/FLORICULTURE TEACHER: Don Bunch PA-C. Assessment & Plan 62yoF with past medical history of HTN admitted following mechanical ground level fall with right hip fracture. # sinus tachycardia and low grade fever ,not poa -pain controlled. patient tachycardic ,denies excessive alcohol use. she states she only drinks on weekends . she states she never had any history of withdrawal symptoms - EKG RBBB , no baseline EKG to compare with,TSH and trops negative, -will do CTA to r/o PE given persistence. D-dimer unhelpful due to recent surgery -Infection also possible but no clear localizing symptoms except recent cough, cxr unremarkable, Procal mildly elevated. Blood culture sent. Hold off empiric antibiotic for now .may need to treat for pneumonia if CT scan shows infiltrate -continue monitoring telemetry # Right hip fracture s/p Right hip total hip arthroplasty., acute, POA -subsequent to mechanical ground level fall - mIVF -ortho consulted, recs appreciated -EKG RBBB of unknown chronicity .patient able to take flights of stair and ambulate with out chest pain or dyspnea # RBBB -no baseline EKG to compare with -echo unremarkable -no chest pain ,SOB or leg swelling # ground level fall -mechanical and alcohol contributing # hyponatremia, acute, POA,resolved -patient with mildly low sodium on admission # ETOH use, acute, POA -possible contributing factor to fall -no history of withdrawal -continue to monitor # elevated glucose, acute, POA -no history of diabetes -HGBa1c added to admission labs, pending # HTN, chronic -BP mildly elevated on admission -continue home medications Patient admitted under inpatient status and will likely be admitted for >2 midnights. disposition:discharge in 1-2 weeks GI Prophylaxis: Not indicated VTE Prophylaxis: Sub-Q Enoxaparin, SCDs VTE Mechanical Devices: Intermittant Pneumatic CD Resuscitation Status: CPR: Attempt Resuscitation Kimo Kincaid MD Feb 06, 2017 16:27
--- NOTE | 2017-02-06 18:12 | DRSVH ---
PROCEDURE: CT ANGIO CHEST PULMONARY EMBOLISM ([id number]) INDICATIONS: perisistent tachycardia TECHNIQUE: After the administration of intravenous contrast, 2 mm thick sections acquired from the pulmonary api cristal to the posterior costophrenic angles. 3-dimensional maximum intensity projection (MIP) coronal a nd sagittal reformats were then acquired through the thorax. For radiation dose reduction, the follo wing was used: automated exposure control, adjustment of mA and/or kV according to patient size. COMPARISON: [facility], CR, XR CHEST 1VW (PORTABLE), 02/03/2017, 19:33. FINDINGS: Image quality: Excellent. Pulmonary arteries: Pulmonary arteries are normal in size, and demonstrate no intraluminal filling d efects to suggest central pulmonary embolism. Lungs and pleura: Right upper lobe scarring versus atelectasis is present. Lungs are otherwise clear . No pleural effusions or pneumothorax. Central and peripheral airways are patent. Mediastinum: Heart size is normal, without pericardial effusion. There is calcification of the alayna nary vasculature. No mediastinal or hilar adenopathy. Thoracic aorta is normal in caliber and enhanc ement. Esophagus is normal in caliber. There is a moderate hiatal hernia. Bones and chest wall: No suspicious bony lesions. Ribs and thoracic spine appear intact throughout. Thyroid gland is within normal limits. No axillary or supraclavicular adenopathy. Abdomen: Visualized upper abdominal solid organs appear normal in the early arterial phase of enhanc ement. IMPRESSION: 1. No acute process. No pulmonary embolus. 2. Coronary artery disease. 3. Moderate hiatal hernia. Dictated by: Juan Jorgensen M.D. on 02/06/2017 at 18:09 Approved by: Juan Jorgensen M.D. on 02/06/2017 at 18:11
--- NOTE | 2017-02-06 22:06 | NUR ---
HEART RATE: Pt. resting in bed with no c/o pain or discomfort. On cont. pulse oximetry and remote telemetry. Pt's heart rate went up to 150s at rest and sustaining. Page[place] electrical design technician, he reported pt. just converted to A-flatter. VS taken immediately. BP 139/80. Temp 99.3 PO, Pt. states "I just feel warm", given a cool wash cloth as pt. often feels too hot. Priscilla Hospitalist. New order. Give 12.5 mg of PO Metoprolol. Done as ordered. On going care. Pt's heart rate down to 114 at this time. On going care. Addendum: 02/06/17 at 2217 by PROSPER WALTON RN (NELLY) ADDENDUM: Per electrical design technician: Pt. just converted back to normal sinus rhythm. Pt. 112. Pt. resting, asleep.
[2017-02-07 00:28] VITALS: BP 118/77; PULSE 85; RESP 20; O2SAT 96
[2017-02-07] MEDS: Sodium Chloride LOK Flush 10 mL Syringe IV SCH ×2 (00:30→08:30)
[2017-02-07] MEDS: hydrOXYzine Pamoate 25 mg Capsule PO PRN (03:29)
[2017-02-07 04:43] VITALS: BP 122/81; PULSE 84; O2SAT 96
[2017-02-07 05:59] VITALS: PULSE 84
[2017-02-07 08:00] VITALS: PULSE 82
[2017-02-07] MEDS: Senna-Docusate 8.6-50 mg Tablet PO SCH (08:30)
--- NOTE | 2017-02-07 09:41 | PCM.PNORTH ---
Subjective Date of Service: Feb 07, 2017 Visit Information: Reason for Visit Hip Fracture,Alcohol Intoxication Surgery/Surgery Date R RAVEN 02/04/17 Post-Op Day # 3 Date of Admission: Feb 03, 2017 at 22:53 Hospital Day # Subjective Patient is pleased with her progress. She walked to the end of the hallway and back yesterday. Today she will work on stairs Postop General: No Complaints, No Shortness of Breath, No Chest Pain Pain Management: PO, IV Push Objective Exam Objective Patient is seen lying in bed Vital Signs and I/O Vital Sign - Last Date Time Temp Pulse Resp B/P Pulse Ox O2 Delivery O2 Flow Rate FiO2 02/07/17 08:00 82 02/07/17 04:43 36.7 122/81 96 Nasal Cannula 2.00 02/07/17 00:28 20 Intake and Output 02/06/17 02/06/17 02/07/17 Cumulative From/Thru 15:00 23:00 07:00 02/03/17 19:14 - 02/07/17 06:11 Intake Total 355 ml 1500 ml 550 ml 9721 ml Output Total 1400 ml 1350 ml 8550 ml Balance 355 ml 100 ml -800 ml 1171 ml Intake Oral 1500 ml 550 ml 3420 ml IV Total 355 ml 6301 ml Output Urine Total 1400 ml 1350 ml 8400 ml Estimated Blood Loss 150 ml # Voids 2 # Bowel Movements 0 0 Lab & Micro Results Laboratory Tests Test 02/06/17 10:17 Urine Color Yellow (YELLOW) Urine Appearance Clear (CLEAR,HAZY) Urine pH 6.0 (5.0-8.0) Urine Specific [place] 1.015 (1.003-1.035) Urine Protein Negativemg/dL (NEG,TRACE) Urine Glucose (UA) Negativemg/dL (NEGATIVE) Urine Ketones Negativemg/dL (NEGATIVE) Urine Occult Blood Trace (NEGATIVE) Urine Nitrite Negative (NEGATIVE) Urine Bilirubin Negative (NEGATIVE) Urine Urobilinogen Normalmg/dL (NORMAL) Urine Leukocyte Esterase Negative (NEGATIVE) Urine RBC 0-2/hpf (0-2) Urine WBC 0-5/hpf (0-5) Urine Epithelial Cells Occasional/hpf (NONE-MOD) Urine Crystals None seen (NONE SEEN) Urine Bacteria None/hpf (NONE-FEW) Urine Hyaline Casts None/lpf (NONE) Urine Granular Casts None seen (NONE SEEN) Urine Waxy Casts None seen (NONE SEEN) Urine Red Blood Cell Casts None seen (NONE SEEN) Urine White Blood Cell Casts None seen (NONE SEEN) Urine Mucus Present (None Seen) Urine Trichomonas None seen (NONE SEEN) Urine Yeast None (NONE SEEN) Urinalysis Comment None Urine Culture Reflexed Not indicated Microbiology 02/06/17 Blood Culture, Received Pending 02/04/17 MRSA (PCR) - Final, Complete Result Diagram: 02/06/17 0511 02/06/17 05 General Appearance: Alert, Oriented X3, Cooperative, No Acute Distress Extremities: Distal Pulses Palpable, No Compartment Syndrom Noted, Thigh & Calf Soft/Nontender Postop Sensory Motor: Distal Motor Intact, Distal Sensation Intact, NVI Distally SURGICAL WOUND : Wound Location/Description Right hip Dressing is clean, dry and intact Activity: Activity per PT Catheters: None Assessment & Plan Impression POD #3 status post right total hip arthroplasty for hip fracture Problems: Plan Weightbearing: Weightbearing as tolerated with wheeled walker DVT prophylaxis: Lovenox 40 mg subcutaneous 3 weeks [DC on 02/25/2017] followed by aspirin 325 mg twice a day 3 weeks Physical therapy for transfers, progressive ambulation, therapeutic exercise. Progressing well with PT. Wound care: change dressing every 2-3 days or if soiled Discharge plan: Discharge home today if medically stable. Follow-up plan: In 2 weeks at [facility] with [facility] for wound check and at [address] Allen with x-rays VTE Prophylaxis: Sub-Q Enoxaparin, SCDs Resuscitation Status: CPR: Attempt Resuscitation [place] Falls[place]iena Mccain PA-C Feb 07, 2017 09:41
--- NOTE | 2017-02-07 09:45 | PCM.DIORTH ---
Ortho Discharge Instruction Date of Service: Feb 07, 2017 Dates of Hospitalization Date of Hospital Admission Feb 03, 2017 at 22:53 Providers Admitting Physician: Lulu Ross DO Primary Care Physician: Monroe Varghese MD Attending Physician: Renny Gordon MD Activity Right Lower Extremity: Weight Bearing as tolerated Discharge Assist Device: Front Wheeled Walker Dressing and Incisional Care Discharge Dressing Care: Keep dressing clean, dry & intact Discharge Hygiene: May shower (see instructions below), DO NOT soak incision under water (for 2 weeks), NO bathtub, hot tub or whirlpool (for 2 weeks) Additional Instructions Discharge Instructions Weightbearing: Weightbearing as tolerated with wheeled walker DVT prophylaxis: Lovenox 40 mg subcutaneous 3 weeks [Dstop on 02/25/2017] followed by aspirin 325 mg twice a day 3 weeks Hip precaution positions to prevent dislocation: No flexing forward past 90, no crossing the legs at the knee, no active abduction for 6 weeks after surgery Wound care: Change dressing every 2-3 days Wear the compression stockings for 4 weeks Increase your walking a little more each week On Saturday, you may shower if the wound has no drainage present. Wound may be uncovered to shower. Let soap and water run over the wound, pat dry and apply a new dressing. Follow Up Plan Follow Up Plan Follow-up plan: In 2 weeks at [facility] with [facility] for wound check and at [address] Allen with x-rays Call your provider for: Fever, Chills, Shortness of breath, Vomitting, Drainage at incision (that is increasing), Wound redness (that is spreading), Increasing pain (for no reason) Siena Kwok PA-C Feb 07, 2017 09:45
[2017-02-07] MEDS ORDERED: Hydrocodone/Acetaminophen PO (11:51)
[2017-02-07] MEDS ORDERED: ENOX40DI8 SUBQ (11:52)
[2017-02-07] MEDS ORDERED: ASPI325T32 PO (11:52)
[2017-02-07] MEDS ORDERED: DOCU-41 PO (11:52)
[2017-02-07] MEDS ORDERED: SENN-133 PO (11:52)
[2017-02-07] MEDS ORDERED: METO25TA6 PO (11:52)
--- NOTE | 2017-02-07 12:03 | PCM.DC.MED ---
Discharge Summary Date of Service Feb 07, 2017 Dates of Hospitalization Date of Hospital Admission Feb 03, 2017 at 22:53 Date of Discharge: Feb 07, 2017 Providers: Admitting Physician: Luul Ross DO Primary Care Physician: Monroe Varghese MD Attending Physician: Renny Gordon MD Diagnosis at Time of Discharge Diagnosis at Time of Discharge Vertically angulated right femoral neck fracture, Right hip total hip arthroplasty 02/04/2017 Anemia of chronic disease, mild thrombocytopenia. Procedures XRay, CTs & MRIs PROCEDURE: X-RAY CHEST ONE VIEW, PORTABLE ([id number]) INDICATIONS: fall TECHNIQUE: One view of the chest was acquired. COMPARISON: None. FINDINGS: Surgical changes and devices: None. Lungs and pleura: No pleural effusions or pneumothorax. Lungs are clear. Mediastinum: Mediastinal contours appear normal. Heart size is normal. Bones and chest wall: No suspicious bony lesions. Overlying soft tissues appear unremarkable. IMPRESSION: No acute process. Dictated by: Juan Jorgensen M.D. on 02/03/2017 at 20:21 Approved by: Juan Jorgensen M.D. on 02/03/2017 at 20:22 Patient Name: TERESA GLASS MR#: [id number] [place] [facility] [place] Phys: LUCIANO HANSEN MD Date of Service: 02/03/171927 PROCEDURE: X-RAY PELVIS W/LAT HIP (RT) ([id number]) INDICATIONS: GLF on to Rt hip, RT hip pain TECHNIQUE: AP pelvis with lateral view(s) of the right hip(s). COMPARISON: None. FINDINGS: Bones: Bony step-off involves the right femoral neck. Pelvic ring appears intact. No suspicious bony lesions. Soft tissues: The visualized bowel gas pattern is normal. No suspicious soft tissue calcifications. IMPRESSION: Probable right femoral neck fracture. Recommend confirmation with additional plain film imaging or CT. Dictated by: Juan Jorgensen M.D. on 02/03/2017 at 20:20 Approved by: Juan Jorgensen M.D. on 02/03/2017 at 20:21 ROCEDURE: CT HIP RIGHT W/O CONTRAST ([id number]) INDICATIONS: hip pain TECHNIQUE: Noncontrast 3 mm axial sections acquired through the bony pelvis. Additional 3 mm axial sections acquired through the symptomatic hip joint, with coronal and sagittal reformats. COMPARISON: [facility], CR, XR PELVIS W LATERAL HIP RT, 02/03/2017, 19:33. [facility], CR, XR FEMUR 2VW RT, 02/03/2017, 23:11. [facility], CR, XR HIP 2VW RT, 02/03/2017, 23:11. FINDINGS: Image quality: Excellent. Bones: There is a femoral neck fracture with 1 cm anterior displacement of the distal fracture fragment and impaction and angulation. There is possible fracture of the sacral body although motion artifacts could be responsible for the appearance. Degenerative changes noted in the lumbar spine. Soft tissues: No soft tissue mass or hematoma. IMPRESSION: 1. Right femoral neck fracture with mild displacement, impaction and angulation. 2. Possible sacral fracture versus motion artifacts. If clinically indicated, MRI of sacrum without contrast is suggested for further evaluation. Dictated by: Aurora Thompson M.D. on 02/04/2017 at 8:32 Other Diagnostics DATE OF SURGERY: 02/04/2017 PREOPERATIVE DIAGNOSIS(ES): Right femoral neck fracture. POSTOPERATIVE DIAGNOSIS(ES): Right femoral neck fracture. PROCEDURE: Right hip total hip arthroplasty. SURGEON: Sebas Allen DO. MEDICAL MANAGEMENT SPECIALIST: Don Bunch PA-C. Brief History Hospital Course 62yoF with past medical history of HTN presented to the hospital with R hip pain she developed after she suffered mechanical fall. Alcohol level was elevated. Patient was diagnosed with Vertically angulated right femoral neck fracture she underwent Right hip total hip arthroplasty 02/04/2017. Metoprolol 12.5 mg twice a day was added to the patient's hypertension. EKG showed right bundle branch block. Physical exam: car was seen and examined on the day of discharge . Physical therapy was consulted. Orthopedic surgery recommended - weightbear to tolerance, use a walker for ambulation with no active abduction for six weeks postoperatively, no flexion past 90 degrees; Lovenox for 21 days postoperatively for DVT prophylaxis followed by aspirin 325 mg twice a day 3 weeks. Patient would like to go back home and continue physical therapy at home. She did not want to go to a facility. After patient improved she was discharged home with recommendation to follow up with her PCP and orthopedic surgeon for further management of her medical problems. Patient will benefit from home health care/PT if she agrees. Patient is not able to drive herself to PT appointments. Patient Condition @ Discharge: good Discharge Disposition: home with home health care if patient agrees Discharge Activity: resume regular activity, patient was advised to avoid heavy physical work or exertion Driving: Patient was strongly advised against driving when under influence of alcohol, pain meds or other medication that can cause sedation or decreased reaction. Patient was strongly advised that she must not drink, drive, operative heavy machinery or do anything that requires precise judgement or dexterity within 12 hours of taking the controlled medication that was prescribed to her . Patient was aware that opioids and benzodiasepines are very addictive medications and may cause psychological or physical addiction. Discharge Diet: regular diet, heart healthy, low fat, low salt, high fiber Information Provided to Patient: information about discharge medications Discharge Medications: I discussed with patient medication dosage, usage, goals of therapy, side effects, alternatives. During discharge patient was allert, oriented, able to make own informed decisions. We discussed possible severe side effects, adverse reactions, benefits, risks, alternatives of current and newly prescribed medications and diagnostic procedures. Patient verbalized understanding and agreed to current plan of care and discharge. TIME SPENT IN DISCHARGE ACTIVITY: activity greater then 30 minutes spent in discharge activity. 1. Discussed with patient re: discharge plan of care/treatment, and follow up care/services. 2. Patient agreed with discharge plan and further plan of care, all questions were answered/addressed, no further questions at the time of discharge. Exam Vital Signs (Last) Date Time Temp Pulse Resp B/P Pulse Ox O2 Delivery O2 Flow Rate FiO2 02/07/17 08:00 82 02/07/17 04:43 36.7 122/81 96 Nasal Cannula 2.00 02/07/17 00:28 20 Test 02/03/17 20:26 02/05/17 15:17 02/06/17 05:11 02/06/17 10:17 Prothrombin Time 9.8sec (8.1-12.5) Prothromb Time International Ratio 0.92ratio Magnesium Level 2.0mg/dL (1.6-2.6) Lipase 48U/L (13-60) Hold Conley Top Tube Received (Received) Alcohols 242mg/dL (0-10) Lactic Acid Level 1.2mmol/L (0.4-2.0) Troponin T < 0.010ug/L (0.0-0.011) Thyroid Stimulating Hormone (TSH) 2.590uIU/mL (0.450-4.500) Free Thyroxine 1.37ng/dL (0.82-1.77) White Blood Count 5.1th/mm3 (3.8-10.1) Red Blood Count 3.18mil/mm3 (3.90-5.20) Hemoglobin 10.2g/dL (12.0-15.6) Hematocrit 31.8% (35.0-46.0) Mean Corpuscular Volume 100.0fL (81-100) Mean Corpuscular Hemoglobin 32.1pg (27.0-35.0) Mean Corpuscular Hemoglobin Concent 32.1% (32.0-37.0) Red Cell Distribution Width 12.6% (12.3-15.4) Platelet Count 125bil/L (150-400) Neutrophils (%) (Auto) 59.3% (40-74) Lymphocytes (%) (Auto) 26.3% (14-46) Monocytes (%) (Auto) 10.9% (4-12) Eosinophils (%) (Auto) 2.9% (0-5) Basophils (%) (Auto) 0.4% (0-3) Sodium Level 140mEq/L (134-144) Potassium Level 3.8mEq/L (3.5-5.2) Chloride Level 103mEq/L (97-108) Carbon Dioxide Level 22mmol/L (18-29) Blood Urea Nitrogen 16mg/dL (8-27) Creatinine 0.68mg/dL (0.57-1.00) Estimat Glomerular Filtration Rate 126mL/min (>59) Glucose Level 108mg/dL (60-99) Calcium Level 8.2mg/dL (8.5-10.1) Total Bilirubin 0.8mg/dL (0.0-1.2) Aspartate Amino Transf (AST/SGOT) 20U/L (0-50) Alanine Aminotransferase (ALT/SGPT) 10U/L (0-32) Alkaline Phosphatase 72U/L (25-165) Total Protein 5.8g/dL (6.4-8.4) Albumin 3.3g/dL (3.4-5.0) Procalcitonin 0.12ng/mL (0.00-0.08) Urine Color Yellow (YELLOW) Urine Appearance Clear (CLEAR,HAZY) Urine pH 6.0 (5.0-8.0) Urine Specific [place] 1.015 (1.003-1.035) Urine Protein Negativemg/dL (NEG,TRACE) Urine Glucose (UA) Negativemg/dL (NEGATIVE) Urine Ketones Negativemg/dL (NEGATIVE) Urine Occult Blood Trace (NEGATIVE) Urine Nitrite Negative (NEGATIVE) Urine Bilirubin Negative (NEGATIVE) Urine Urobilinogen Normalmg/dL (NORMAL) Urine Leukocyte Esterase Negative (NEGATIVE) Urine RBC 0-2/hpf (0-2) Urine WBC 0-5/hpf (0-5) Urine Epithelial Cells Occasional/hpf (NONE-MOD) Urine Crystals None seen (NONE SEEN) Urine Bacteria None/hpf (NONE-FEW) Urine Hyaline Casts None/lpf (NONE) Urine Granular Casts None seen (NONE SEEN) Urine Waxy Casts None seen (NONE SEEN) Urine Red Blood Cell Casts None seen (NONE SEEN) Urine White Blood Cell Casts None seen (NONE SEEN) Urine Mucus Present (None Seen) Urine Trichomonas None seen (NONE SEEN) Urine Yeast None (NONE SEEN) Urinalysis Comment None Urine Culture Reflexed Not indicated Discharge Medications Discharge Medications Aspirin (Aspirin) 325 Mg Tablet 325 MG PO twice daily Start taking Aspirin on 02/28/2017(after you finish Enoxaparin injections). Take 325 mg twice daily for 3 weeks. This is for DVT prophylaxis/ Prescribed by: BHANU HOANG MD Docusate Sodium (Colace) 100 Mg Capsule 100 MG PO BID Prescribed by: BHANU HOANG MD Enoxaparin Sodium (Enoxaparin Sodium) 40 Mg/0.4 Ml Syringe 40 MG SUBQ Q24 After You finish Enoxaparin injections please continue with Aspirin 325 orally twice daily for 3 weeks. Prescribed by: BHANU HOANG MD Fluoxetine (Fluoxetine) 20 Mg Capsule 20 MG PO QAM (Reported) Gluc/Jadiel-MSM#2/C/D3/Moe/Born (Mfmmlotbee-Erdorckdtka-LWZ Tab) 1 Each Tablet 1 EACH PO QAM (Reported) Lisinopril (Lisinopril) 20 Mg Tablet 40 MG PO QAM (Reported) Metoprolol Tartrate (Metoprolol Tartrate) 25 Mg Tablet 12.5 MG PO BID Prescribed by: BHANU HOANG MD As needed Naproxen Sodium (Naproxen Sodium) 220 Mg Capsule 220 MG PO BIDWM PRN PRN For Pain (Reported) Sennosides (Senna) 8.6 Mg Tablet 17.2 MG PO BID PRN PRN For Constipation Prescribed by: BHANU HOANG MD oxyCODONE (oxyCODONE) 5 Mg Tablet 5-10 MG PO Q4H PRN PRN For Severe Pain Prescribed by: MD Bhanu CASON Andriy MD Feb 07, 2017 12:03 Renny Gordon MD Feb 07, 2017 12:03
[2017-02-07] MEDS ORDERED: OXYC-530 PO (14:19)
[2017-02-07 16:16] VITALS: BP 122/81; PULSE 95; RESP 18; O2SAT 94
--- NOTE | 2017-02-07 16:51 | NUR ---
Social Work: Discharge/Multidisciplinary Rounds D: EMR reviewed. Pt is on day 4 of hospitalization. Pt discussed in multidisciplinary rounds and is medically stable for discharge home today with HHPT. SW received HHPT order from . SW met with pt at bedside and discussed HH recommendations with pt. Pt agreeable. Pt states she will be homebound after this hospital stay. SW provided HH choice list. Pt did not have choice. SW selected [facility] based on rotating vendor calendar. Pt's insurance is [employer] and [facility] is contracted with [facility]. SW provided access and left voicemail with referral for [facility]. SW faxed F2F to [facility]. SW confirmed that [facility] will follow-up with pt within 24 hours of discharge. Pt agreeable. A: Pt for whom PT is medically necessary P: Pt to discharge home today with spouse to transport via POV. Pt anticipated to open with [facility] for PT. F2F completed and faxed, access provided, and referral voicemail left. SW to follow-up with pt is [facility] is not able to open - pt agreeable. AIDEN Pederson
--- NOTE | 2017-02-07 17:27 | NUR ---
DC IV removed with no issues. All discharge instructions reviewed with pt with no other questions. Reviewed and educated regarding Lovenox injection, as well as dressing changes. Pt states that she has no further questions. All belonging in hand. Prescriptions sent with . Care discontinues
== END 2017-02-07 17:49 | disposition home health service (06) | DRG 470 ==
LOC: EDBD 19:01 → SED 19:01 → OSC 22:53 → OBSVTOIN 22:53 → OSC 23:45
PROVIDERS: ADMIT Internal Medicine; ATTEND Internal Medicine
PROC: 0SR904A Replacement of Right Hip Joint with Ceramic on Polyethylene Synthetic Substitute, Uncemented, Open Approach (ICD-10-PCS; principal; 2017-02-04 15:15)
DX: S72.001A Fracture of unspecified part of neck of right femur, initial encounter for closed fracture (principal); E87.1 Hypo-osmolality and hyponatremia; F10.129 Alcohol abuse with intoxication, unspecified; Y90.8 Blood alcohol level of 240 mg/100 ml or more; I10 Essential (primary) hypertension; W10.8XXA Fall (on) (from) other stairs and steps, initial encounter; Y93.01 Activity, walking, marching and hiking; Y92.009 Unspecified place in unspecified non-institutional (private) residence as the place of occurrence of the external cause; R00.0 Tachycardia, unspecified; I45.10 Unspecified right bundle-branch block; R73.9 Hyperglycemia, unspecified